=== PATIENT | female | born 2000 | race Caucasian/White ===

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

== ENCOUNTER 2019-12-30 02:33 | Observation (INO) | payer BC, OTHER ==
[~2019-12-30] VITALS: Ht 149.9 cm; Wt 113.2 kg
[2019-12-30] MEDS ORDERED: ESCI10 PO (02:58)
[2019-12-30] MEDS ORDERED: TRILEPTAL300 M1 PO (02:59)
[2019-12-30 03:33] LABS: BASOPHILS ABSOLUTE AUTO 0.05 K/mm3 (0.00-0.23); BASOPHILS PERCENT AUTO 0 % (0-2); EOSINOPHILS ABSOLUTE AUTO 0.06 K/mm3 (0.00-0.68); EOSINOPHILS PERCENT AUTO 0 % (0-6); Hematocrit 43.5 % (33.0-51.0); IMMATURE GRAN ABSOLUTE AUTO 0.06 K/mm3 (0.00-0.10); IMMATURE GRAN PERCENT AUTO 0 % (0-1); LYMPHOCYTES ABSOLUTE AUTO 2.02 K/mm3 (0.84-5.20); LYMPHOCYTES PERCENT AUTO 12 % (21-46); MONOCYTES ABSOLUTE AUTO 1.04 K/mm3 (0.16-1.47); MONOCYTES PERCENT AUTO 6 % (4-13); Mean Corpuscular HGB 30.2 pg (26.0-34.0); Mean Corpuscular HGB Conc 34.5 g/dL (31.5-36.5); Mean Corpuscular Volume 88 fL (80-100); Mean Platelet Volume 9.5 fL (9.1-12.4); NEUTROPHILS ABSOLUTE AUTO 13.53 K/mm3 (1.96-9.15); NEUTROPHILS PERCENT AUTO 81 % (41-73); Platelet Count 335 K/mm3 (150-400); RDW Coefficient Variation 12.8 % (11.7-14.2); RDW Standard Deviation 41.1 fL (35.1-46.3); Red Blood Cell Count 4.96 M/mm3 (3.80-5.20); White Blood Cell Count 16.76 K/mm3 (4.00-11.30)
[2019-12-30 03:35] LABS: Source, Urine Clean Catch
[2019-12-30 03:45] LABS: Appearance, Urine Clear (Clear); Bilirubin, Urine Neg (Neg); Blood, Urine 3+ (Neg); Color, Urine Yellow (P-Yellow); Glucose Qualitative, Urine Neg (Neg); Ketones, Urine Neg (Neg); Leukocyte Esterase, Urine 1+ (Neg); Nitrite, Urine Neg (Neg); Protein, Urine 1+ (Neg); Specific Gravity, Urine 1.025 (1.003-1.022); Urobilinogen, Urine NORM (Normal)
[2019-12-30 03:55] LABS: Bacteria Few /hpf; Squamous Epithelial Cells Few /hpf (Few); White Blood Cells, Urine 0-2 /hpf (0-5)
[2019-12-30 03:58] LABS: Anion Gap 11 mmol/L (6-16); Blood Urea Nitrogen 15 mg/dL (8-24); Bun/Creatinine Ratio 22.7 (12.0-20.0); CO2, Blood 21 mmol/L (21-32); Calcium, Blood 8.3 mg/dL (8.5-10.1); Chloride, Blood 108 mmol/L (98-108); Creatinine, Blood 0.66 mg/dL (0.40-1.00); Glomerular Filtration Rate >60 (60-); Glucose, Blood 114 mg/dL (70-99); Potassium, Blood 3.7 mmol/L (3.5-5.5); Sodium, Blood 140 mmol/L (136-145)
--- NOTE | 2019-12-30 06:30 | NUR ---
PT ARRIVED TO ROOM 210 AT 0600. A/O X4, IND IN ROOM WITH SBA FOR IV LINE. CALL LIGHT IN REACH, PT PROVIDED INSTRUCTIONS FOR USE. IV ABX INFUSING. FAMILY AT BEDSIDE.
--- NOTE | 2019-12-30 09:30 | NUR ---
PT TAKEN TO OR BY PRE-OP STAFF [facility]IA [employer]. PRIOR TO LEAVING PT WAS ABLE TO AMBULATE TO RESTROOM WITHOUT ASSIST. PAIN GREATLY IMPROVED. PT DID REPORT AFTER PRN PAIN MEDICATION ADMINISTERED THIS MORNING THAT SHE WAS HALLUCINATING AND BECAME VERY NAUSEATED. PRE-OP STAFF NOTIFIED OF PT'S REACTION TO PAIN MEDICATION.
--- NOTE | 2019-12-30 13:18 | NUR ---
1250 PT RETURNED FROM PACU S/P APPENDECTOMY. LAB SITES X3 W/ STERI STRIPS ALL ALL C/D/I EXCEPT SCANT BLOODY DRAINAGE FROM UMBILICAL INCISION. PT TOLERATING CLEARS AND REQUESTING A SANDWHICH. ENCOURAGED PT TO TAKE IT EASY AND TRY SOME CRACKERS FIRST. PT IS ALERT AND TALKING WITH FAMILY CURRENTLY. VITALS ARE STABLE, PT IS ON ROOM AIR.
[2019-12-30] MEDS ORDERED: Acetaminophen650 M1 PO (15:47)
[2019-12-30] MEDS ORDERED: OXAYDO5 MG PO (15:47)
--- NOTE | 2019-12-30 16:18 | NUR ---
PT MET POST OP DISCHARGE QUALIFIERS, DR PETERSON PLACED DISCHARGE ORDERS. DISCHAGE INSTRUCTIONS GONE OVER WITH PT AND FAMILY. INSTRUCTED PT ON PAIN CONTROL, MEDICATION AND HOW TO OBTAIN PAIN MEDICATION. INSTRUCTED PT ON POST OP INCISION AND DISCHARGE CARE. PT AND FAMILY STATED UNDERSTANDING. PT WAS ESCORTED OUT OF FACILITY BY RN VIA WHEELCHAIR AND WAS TAKEN HOME BY FAMILY. ALL BELONGINGS WERE GATHERED AND TAKEN WITH PT.
== END 2019-12-30 16:15 | disposition home or self-care (01) ==
LOC: ER 02:33 → SURS 02:34 → ER 05:43 → SURS 05:43
PROVIDERS: Student in an Organized Health Care Education/Training Program; ADMIT Surgery
PROC: 0DTJ4ZZ Resection of Appendix, Percutaneous Endoscopic Approach (ICD-10-PCS; principal; 2019-12-30 10:00)
DX: K35.80 Unspecified acute appendicitis (principal); Z20.828 Contact with and (suspected) exposure to other viral communicable diseases; Z88.2 Allergy status to sulfonamides; Z88.1 Allergy status to other antibiotic agents; F41.9 Anxiety disorder, unspecified; F32.9 Major depressive disorder, single episode, unspecified; Z79.899 Other long term (current) drug therapy
CPT/HCPCS: 36415; 74177; 80048; 81001; 81025; 85025; 87086; 96365-59; 96375; 99285-25; J0330; J0696; J0744; J1100; J1170; J1200; J1885; J2250; J2405; J2704; J3010; J7050; J7120; Q9967; U0002

== ENCOUNTER 2020-01-14 09:15 | Emergency (ER) | payer BC, OTHER ==
[~2020-01-14] VITALS: Ht 152.4 cm; Wt 112.5 kg
[~2020-01-14 09:15] MED LIST: Acetaminophen650 M1 PO; ESCI10 PO; OXAYDO5 MG PO; TRILEPTAL300 M1 PO
[2020-01-14 09:33] LABS: BASOPHILS ABSOLUTE AUTO 0.03 K/mm3 (0.00-0.23); BASOPHILS PERCENT AUTO 0 % (0-2); EOSINOPHILS ABSOLUTE AUTO 0.11 K/mm3 (0.00-0.68); EOSINOPHILS PERCENT AUTO 1 % (0-6); Hematocrit 43.2 % (33.0-51.0); Hemoglobin 15.1 g/dL (11.5-16.0); IMMATURE GRAN ABSOLUTE AUTO 0.01 K/mm3 (0.00-0.10); IMMATURE GRAN PERCENT AUTO 0 % (0-1); LYMPHOCYTES ABSOLUTE AUTO 2.36 K/mm3 (0.84-5.20); LYMPHOCYTES PERCENT AUTO 30 % (21-46); MONOCYTES ABSOLUTE AUTO 0.53 K/mm3 (0.16-1.47); MONOCYTES PERCENT AUTO 7 % (4-13); Mean Corpuscular HGB 30.7 pg (26.0-34.0); Mean Corpuscular Volume 88 fL (80-100); Mean Platelet Volume 9.2 fL (9.1-12.4); NEUTROPHILS ABSOLUTE AUTO 4.88 K/mm3 (1.96-9.15); NEUTROPHILS PERCENT AUTO 62 % (41-73); Platelet Count 332 K/mm3 (150-400); RDW Coefficient Variation 12.8 % (11.7-14.2); Red Blood Cell Count 4.92 M/mm3 (3.80-5.20); White Blood Cell Count 7.92 K/mm3 (4.00-11.30)
[2020-01-14 09:48] LABS: Alanine Aminotransfer (ALT/SGP 42 U/L (12-78); Albumin, Blood 3.6 g/dL (3.4-5.0); Alk Phos 101 U/L (50-136); Anion Gap 6 mmol/L (6-16); Aspartate Aminotrans (AST/SGOT 20 U/L (12-37); Bilirubin, Total 0.3 mg/dL (0.1-1.0); Blood Urea Nitrogen 10 mg/dL (8-24); Bun/Creatinine Ratio 20.4 (12.0-20.0); CO2, Blood 22 mmol/L (21-32); Calcium, Blood 8.7 mg/dL (8.5-10.1); Chloride, Blood 113 mmol/L (98-108); Creatinine, Blood 0.49 mg/dL (0.40-1.00); Globulin, Blood 3.5 g/dL (2.2-4.0); Glomerular Filtration Rate >60 (60-); Glucose, Blood 98 mg/dL (70-99); Sodium, Blood 141 mmol/L (136-145); Total Protein, Blood 7.1 g/dL (6.4-8.2)
[2020-01-14 10:07] LABS: Source, Urine Clean Catch
[2020-01-14 10:16] LABS: Appearance, Urine Clear (Clear); Bilirubin, Urine Neg (Neg); Blood, Urine Neg (Neg); Color, Urine Yellow (P-Yellow); Glucose Qualitative, Urine Neg (Neg); Ketones, Urine Neg (Neg); Leukocyte Esterase, Urine 1+ (Neg); Nitrite, Urine Neg (Neg); Protein, Urine Neg (Neg); Specific Gravity, Urine 1.025 (1.003-1.022); Urobilinogen, Urine NORM (Normal)
[2020-01-14 10:27] LABS: Bacteria Few /hpf; Red Blood Cells, Urine 0-2 /hpf (0-2); Squamous Epithelial Cells Mod /hpf (Few)
[2020-01-14] MEDS ORDERED: CEPH500 PO (10:57)
== END 2020-01-14 11:06 | disposition home or self-care (01) ==
LOC: ER 09:15
PROVIDERS: Emergency Medicine
DX: N39.0 Urinary tract infection, site not specified (principal); F41.9 Anxiety disorder, unspecified; F31.9 Bipolar disorder, unspecified; F90.9 Attention-deficit hyperactivity disorder, unspecified type; F17.200 Nicotine dependence, unspecified, uncomplicated; Z79.899 Other long term (current) drug therapy; Z90.49 Acquired absence of other specified parts of digestive tract; Z88.2 Allergy status to sulfonamides; Z88.1 Allergy status to other antibiotic agents
CPT/HCPCS: 36415; 76705; 80053; 81001; 83690; 85025; 87086; 96374; 99284-25; J1885

== ENCOUNTER 2020-03-12 10:02 | Emergency (ER) | payer BC, OTHER ==
[~2020-03-12] VITALS: Ht 152.4 cm; Wt 111.1 kg
[~2020-03-12 10:02] MED LIST changes: +CEPH500 PO
[2020-03-12 11:30] LABS: BASOPHILS ABSOLUTE AUTO 0.04 K/mm3 (0.00-0.23); BASOPHILS PERCENT AUTO 1 % (0-2); EOSINOPHILS ABSOLUTE AUTO 0.06 K/mm3 (0.00-0.68); EOSINOPHILS PERCENT AUTO 1 % (0-6); Hematocrit 44.5 % (33.0-51.0); Hemoglobin 14.8 g/dL (11.5-16.0); IMMATURE GRAN ABSOLUTE AUTO 0.02 K/mm3 (0.00-0.10); IMMATURE GRAN PERCENT AUTO 0 % (0-1); LYMPHOCYTES ABSOLUTE AUTO 2.08 K/mm3 (0.84-5.20); LYMPHOCYTES PERCENT AUTO 30 % (21-46); MONOCYTES ABSOLUTE AUTO 0.61 K/mm3 (0.16-1.47); MONOCYTES PERCENT AUTO 9 % (4-13); Mean Corpuscular HGB 29.1 pg (26.0-34.0); Mean Corpuscular HGB Conc 33.3 g/dL (31.5-36.5); Mean Corpuscular Volume 87 fL (80-100); Mean Platelet Volume 8.9 fL (9.1-12.4); NEUTROPHILS ABSOLUTE AUTO 4.08 K/mm3 (1.96-9.15); NEUTROPHILS PERCENT AUTO 59 % (41-73); Platelet Count 335 K/mm3 (150-400); RDW Coefficient Variation 12.9 % (11.7-14.2); RDW Standard Deviation 41.8 fL (35.1-46.3); Red Blood Cell Count 5.09 M/mm3 (3.80-5.20); White Blood Cell Count 6.89 K/mm3 (4.00-11.30)
[2020-03-12 11:53] LABS: Alanine Aminotransfer (ALT/SGP 33 U/L (12-78); Albumin, Blood 3.6 g/dL (3.4-5.0); Alk Phos 105 U/L (50-136); Anion Gap 4 mmol/L (6-16); Aspartate Aminotrans (AST/SGOT 19 U/L (12-37); Bilirubin, Total 0.3 mg/dL (0.1-1.0); Blood Urea Nitrogen 11 mg/dL (8-24); Bun/Creatinine Ratio 17.6 (12.0-20.0); CO2, Blood 26 mmol/L (21-32); Calcium, Blood 8.7 mg/dL (8.5-10.1); Chloride, Blood 110 mmol/L (98-108); Creatinine, Blood 0.62 mg/dL (0.40-1.00); Globulin, Blood 3.5 g/dL (2.2-4.0); Glomerular Filtration Rate >60 (60-); Glucose, Blood 94 mg/dL (70-99); Potassium, Blood 3.8 mmol/L (3.5-5.5); Sodium, Blood 140 mmol/L (136-145); Total Protein, Blood 7.1 g/dL (6.4-8.2)
[2020-03-12 12:02] LABS: Source, Urine Clean Catch
[2020-03-12 12:11] LABS: Appearance, Urine Clear (Clear); Bilirubin, Urine Neg (Neg); Blood, Urine 1+ (Neg); Color, Urine Yellow (P-Yellow); Glucose Qualitative, Urine Neg (Neg); Ketones, Urine 1+ (Neg); Leukocyte Esterase, Urine 1+ (Neg); Nitrite, Urine Neg (Neg); Protein, Urine 1+ (Neg); Urobilinogen, Urine NORM (Normal)
[2020-03-12 12:20] LABS: Bacteria Mod /hpf; Squamous Epithelial Cells Few /hpf (Few)
== END 2020-03-12 13:48 | disposition left against medical advice (07) ==
LOC: ER 10:02
PROVIDERS: Physician Assistant
DX: R10.84 Generalized abdominal pain (principal); J02.9 Acute pharyngitis, unspecified; Z53.21 Procedure and treatment not carried out due to patient leaving prior to being seen by health care provider; Z79.899 Other long term (current) drug therapy
CPT/HCPCS: 36415; 80053; 81001; 83690; 85025; 87086; 99284

== ENCOUNTER 2020-04-18 15:41 | Emergency (ER) | payer BC, OTHER ==
[~2020-04-18] VITALS: Ht 152.4 cm; Wt 111.1 kg
[~2020-04-18 15:41] MED LIST changes: +Atarax10 MG PO; +ESCI20 PO
== END 2020-04-18 17:04 | disposition home or self-care (01) ==
LOC: ER 15:41
DX: R05 Cough (principal); F17.200 Nicotine dependence, unspecified, uncomplicated; Z88.2 Allergy status to sulfonamides; Z88.1 Allergy status to other antibiotic agents; Z79.899 Other long term (current) drug therapy
CPT/HCPCS: 71046

== ENCOUNTER 2020-05-17 13:16 | Observation (INO) | payer BC, OTHER ==
[~2020-05-17] VITALS: Ht 152.4 cm; Wt 111.1 kg
[2020-05-17 15:17] LABS: BASOPHILS ABSOLUTE AUTO 0.04 K/mm3 (0.00-0.23); BASOPHILS PERCENT AUTO 0 % (0-2); EOSINOPHILS ABSOLUTE AUTO 0.08 K/mm3 (0.00-0.68); EOSINOPHILS PERCENT AUTO 1 % (0-6); Hematocrit 44.3 % (33.0-51.0); IMMATURE GRAN ABSOLUTE AUTO 0.01 K/mm3 (0.00-0.10); IMMATURE GRAN PERCENT AUTO 0 % (0-1); LYMPHOCYTES ABSOLUTE AUTO 2.56 K/mm3 (0.84-5.20); LYMPHOCYTES PERCENT AUTO 28 % (21-46); MONOCYTES ABSOLUTE AUTO 0.61 K/mm3 (0.16-1.47); MONOCYTES PERCENT AUTO 7 % (4-13); Mean Corpuscular HGB 29.4 pg (26.0-34.0); Mean Corpuscular HGB Conc 33.9 g/dL (31.5-36.5); Mean Corpuscular Volume 87 fL (80-100); Mean Platelet Volume 9.1 fL (9.1-12.4); NEUTROPHILS PERCENT AUTO 63 % (41-73); Platelet Count 347 K/mm3 (150-400); RDW Coefficient Variation 12.7 % (11.7-14.2); RDW Standard Deviation 40.4 fL (35.1-46.3); Red Blood Cell Count 5.11 M/mm3 (3.80-5.20)
[2020-05-17 15:51] LABS: Alanine Aminotransfer (ALT/SGP 34 U/L (12-78); Albumin, Blood 3.7 g/dL (3.4-5.0); Albumin/Globulin Ratio 1.1 (0.8-1.8); Alk Phos 120 U/L (50-136); Anion Gap 6 mmol/L (6-16); Aspartate Aminotrans (AST/SGOT 12 U/L (12-37); Bilirubin, Total 0.2 mg/dL (0.1-1.0); Blood Urea Nitrogen 8 mg/dL (8-24); Bun/Creatinine Ratio 13.9 (12.0-20.0); CO2, Blood 23 mmol/L (21-32); Calcium, Blood 8.3 mg/dL (8.5-10.1); Chloride, Blood 112 mmol/L (98-108); Creatinine, Blood 0.58 mg/dL (0.40-1.00); Ethanol (Alcohol), Blood, Med <3 mg/dL; Globulin, Blood 3.3 g/dL (2.2-4.0); Glomerular Filtration Rate >60 (60-); Glucose, Blood 105 mg/dL (70-99); Potassium, Blood 3.8 mmol/L (3.5-5.5); Salicylate <1.7 mg/dL (2.8-20.0); Sodium, Blood 141 mmol/L (136-145)
[2020-05-17 15:54] LABS: Acetaminophen, Random <2.0 ug/mL (10.0-30.0)
[2020-05-17 17:55] LABS: Source, Urine Clean Catch
[2020-05-17 17:59] LABS: Appearance, Urine Clear (Clear); Bilirubin, Urine Neg (Neg); Blood, Urine 1+ (Neg); Color, Urine Yellow (P-Yellow); Glucose Qualitative, Urine Neg (Neg); Ketones, Urine Neg (Neg); Leukocyte Esterase, Urine 2+ (Neg); Nitrite, Urine Neg (Neg); Protein, Urine 1+ (Neg); Urobilinogen, Urine NORM (Normal)
[2020-05-17] MEDS ORDERED: CLON.1 PO (18:11)
[2020-05-17] MEDS ORDERED: CLON.5 PO (18:11)
[2020-05-17] MEDS ORDERED: OMEP20ER PO (18:12)
[2020-05-17 18:13] LABS: U Amphetamine Screen Not Detected; U Barbituate Screen Not Detected; U Benzodiazapine Screen Not Detected; U Buprenorphine Screen Not Detected; U Cannabinoids Screen Not Detected; U Cocaine Screen Not Detected; U Methadone Screen Not Detected; U Methamphetamine Screen Not Detected; U Opiates Screen Not Detected; U Oxycodone Screen Not Detected; U Phencyclidine Screen Not Detected; U Propoxyphene Screen Not Detected
[2020-05-17 18:16] LABS: Bacteria Few /hpf; Red Blood Cells, Urine 0-2 /hpf (0-2); Squamous Epithelial Cells Mod /hpf (Few)
[2020-05-18 09:01] LABS: Influenza A, PCR Negative (NEGATIVE); Influenza B, PCR Negative (NEGATIVE); Resp Syncytial Virus, PCR Negative (NEGATIVE); SARS-Cov-2 (COVID-19) PCR, MMC Negative (NEGATIVE)
== END 2020-05-18 11:47 ==
LOC: ER 13:16 → EOR 13:17
PROVIDERS: Emergency Medicine; Physician Assistant; ADMIT Emergency Medicine
DX: F31.9 Bipolar disorder, unspecified (principal); R45.851 Suicidal ideations; F41.9 Anxiety disorder, unspecified; F90.9 Attention-deficit hyperactivity disorder, unspecified type; F17.200 Nicotine dependence, unspecified, uncomplicated; Z88.1 Allergy status to other antibiotic agents; Z88.2 Allergy status to sulfonamides; Z91.5 Personal history of self-harm; Z20.822 Contact with and (suspected) exposure to COVID-19
CPT/HCPCS: 0241U; 80053; 81001; 81025; 85025; 87086; 99285; A9270; G0378; G0480; Q3014

== ENCOUNTER 2020-08-11 09:39 | Emergency (ER) | payer BC, OTHER ==
[~2020-08-11] VITALS: Ht 152.4 cm; Wt 113.8 kg
[~2020-08-11 09:39] MED LIST changes: +CLON.1 PO; +CLON.5 PO; +OMEP20ER PO
[2020-08-11] MEDS ORDERED: Prinivil10 MG PO (10:10)
[2020-08-11] MEDS ORDERED: Seroquel Xr50 MG (10:10)
[2020-08-11] MEDS ORDERED: CYCL10 (10:10)
[2020-08-11] MEDS ORDERED: IBUP800 PO (11:20)
[2020-08-11] MEDS ORDERED: Norco 5-325 Ta1 EACH PO (11:20)
== END 2020-08-11 11:27 | disposition home or self-care (01) ==
LOC: ER 09:39
DX: M54.5 Low back pain (principal); F17.200 Nicotine dependence, unspecified, uncomplicated; Z79.899 Other long term (current) drug therapy; Z88.2 Allergy status to sulfonamides; Z88.1 Allergy status to other antibiotic agents
CPT/HCPCS: 96372; 99283; A9270-GY; J1885

== ENCOUNTER → 2020-10-13 | Outpatient (CLI) | payer BC, OTHER ==
[~2020-10-13] MED LIST changes: +CYCL10; +IBUP800 PO; +Norco 5-325 Ta1 EACH PO; +Prinivil10 MG PO; +Seroquel Xr50 MG
== END | disposition home or self-care (01) ==
LOC: LAB SHORT 10:00 → LAB 10:00
DX: J06.9 Acute upper respiratory infection, unspecified (principal); R09.82 Postnasal drip
CPT/HCPCS: 87081

== ENCOUNTER 2021-01-05 14:10 | Emergency (ER) | payer BC, OTHER ==
[~2021-01-05] VITALS: Ht 160 cm; Wt 113.8 kg
== END 2021-01-05 14:31 | disposition home or self-care (01) ==
LOC: ER 14:10
DX: T63.441A Toxic effect of venom of bees, accidental (unintentional), initial encounter (principal); F17.290 Nicotine dependence, other tobacco product, uncomplicated; Z88.2 Allergy status to sulfonamides; Z88.1 Allergy status to other antibiotic agents; Z79.899 Other long term (current) drug therapy
CPT/HCPCS: 99282; A9270

== ENCOUNTER 2021-03-12 14:48 | Emergency (ER) | payer BC, OTHER ==
[~2021-03-12] VITALS: Ht 157.5 cm; Wt 114.3 kg
[~2021-03-12 14:48] MED LIST changes: -Seroquel Xr50 MG; +Seroquel Xr50 MG PO
[2021-03-12 15:27] LABS: BASOPHILS ABSOLUTE AUTO 0.05 K/mm3 (0.00-0.23); BASOPHILS PERCENT AUTO 1 % (0-2); EOSINOPHILS ABSOLUTE AUTO 0.33 K/mm3 (0.00-0.68); EOSINOPHILS PERCENT AUTO 4 % (0-6); Hematocrit 42.3 % (33.0-51.0); IMMATURE GRAN ABSOLUTE AUTO 0.01 K/mm3 (0.00-0.10); IMMATURE GRAN PERCENT AUTO 0 % (0-1); LYMPHOCYTES PERCENT AUTO 22 % (21-46); MONOCYTES ABSOLUTE AUTO 1.04 K/mm3 (0.16-1.47); MONOCYTES PERCENT AUTO 11 % (4-13); Mean Corpuscular HGB Conc 35.5 g/dL (31.5-36.5); Mean Corpuscular Volume 87 fL (80-100); Mean Platelet Volume 9.4 fL (9.1-12.4); NEUTROPHILS PERCENT AUTO 63 % (41-73); Platelet Count 317 K/mm3 (150-400); RDW Coefficient Variation 12.9 % (11.7-14.2); RDW Standard Deviation 41.8 fL (35.1-46.3); Red Blood Cell Count 4.84 M/mm3 (3.80-5.20); White Blood Cell Count 9.43 K/mm3 (4.00-11.30)
[2021-03-12] MEDS ORDERED: POTCHL20ER PO (15:45)
[2021-03-12 15:46] LABS: Alanine Aminotransfer (ALT/SGP 46 U/L (12-78); Albumin, Blood 3.5 g/dL (3.4-5.0); Albumin/Globulin Ratio 0.9 (0.8-1.8); Alk Phos 97 U/L (50-136); Anion Gap 8 mmol/L (6-16); Aspartate Aminotrans (AST/SGOT 31 U/L (12-37); Bilirubin, Total 0.3 mg/dL (0.1-1.0); Blood Urea Nitrogen 13 mg/dL (8-24); Bun/Creatinine Ratio 19.4 (12.0-20.0); CO2, Blood 21 mmol/L (21-32); Calcium, Blood 8.6 mg/dL (8.5-10.1); Chloride, Blood 111 mmol/L (98-108); Creatinine, Blood 0.67 mg/dL (0.40-1.00); Globulin, Blood 3.7 g/dL (2.2-4.0); Glomerular Filtration Rate >60 (60-); Glucose, Blood 93 mg/dL (70-99); Potassium, Blood 4.1 mmol/L (3.5-5.5); Sodium, Blood 140 mmol/L (136-145); Total Protein, Blood 7.2 g/dL (6.4-8.2)
== END 2021-03-12 16:15 | disposition left against medical advice (07) ==
LOC: ER 14:48
PROVIDERS: Physician Assistant
DX: R11.2 Nausea with vomiting, unspecified (principal); R19.7 Diarrhea, unspecified; R10.9 Unspecified abdominal pain; R00.0 Tachycardia, unspecified; F41.9 Anxiety disorder, unspecified; F17.200 Nicotine dependence, unspecified, uncomplicated; Z88.2 Allergy status to sulfonamides; Z88.1 Allergy status to other antibiotic agents; Z79.899 Other long term (current) drug therapy
CPT/HCPCS: 36415; 80053; 83690; 85025; 99283

== ENCOUNTER → 2021-09-03 | Outpatient (CLI) | payer BC, OTHER ==
[~2021-09-03] MED LIST changes: +LOSARTAN POTASS25 M2 PO; +POTCHL20ER PO; +TRILEPTAL PO
== END | disposition home or self-care (01) ==
LOC: LAB 14:05 → LAB SHORT 14:05
DX: N39.0 Urinary tract infection, site not specified (principal)
CPT/HCPCS: 87086

== ENCOUNTER → 2021-09-04 | Outpatient (CLI) | payer BC, OTHER ==
[2021-09-06 12:10] LABS: CHLAMYDIA BY NAA Negative (Negative); GONOCOCCUS BY NAA Negative (Negative); TRICH VAG BY NAA Negative (Negative)
== END | disposition home or self-care (01) ==
LOC: LAB 17:18 → LAB SHORT 17:18
PROVIDERS: Chiropractor
DX: Z20.9 Contact with and (suspected) exposure to unspecified communicable disease (principal)
CPT/HCPCS: 87491; 87591; 87661

== ENCOUNTER → 2021-11-02 | Outpatient (CLI) | payer BC, OTHER ==
[2021-11-02 13:02] LABS: BASOPHILS ABSOLUTE AUTO 0.03 K/mm3 (0.00-0.23); BASOPHILS PERCENT AUTO 0 % (0-2); EOSINOPHILS ABSOLUTE AUTO 0.09 K/mm3 (0.00-0.68); EOSINOPHILS PERCENT AUTO 1 % (0-6); Hematocrit 40.1 % (33.0-51.0); Hemoglobin 14.1 g/dL (11.5-16.0); IMMATURE GRAN ABSOLUTE AUTO 0.02 K/mm3 (0.00-0.10); IMMATURE GRAN PERCENT AUTO 0 % (0-1); LYMPHOCYTES ABSOLUTE AUTO 2.11 K/mm3 (0.84-5.20); LYMPHOCYTES PERCENT AUTO 21 % (21-46); MONOCYTES ABSOLUTE AUTO 0.86 K/mm3 (0.16-1.47); MONOCYTES PERCENT AUTO 9 % (4-13); Mean Corpuscular HGB 30.8 pg (26.0-34.0); Mean Corpuscular HGB Conc 35.2 g/dL (31.5-36.5); Mean Corpuscular Volume 88 fL (80-100); NEUTROPHILS ABSOLUTE AUTO 6.98 K/mm3 (1.96-9.15); NEUTROPHILS PERCENT AUTO 69 % (41-73); Platelet Count 334 K/mm3 (150-400); RDW Standard Deviation 41.1 fL (35.1-46.3); Red Blood Cell Count 4.58 M/mm3 (3.80-5.20); White Blood Cell Count 10.09 K/mm3 (4.00-11.30)
[2021-11-02 13:09] LABS: Albumin, Blood 3.7 g/dL (3.4-5.0); Albumin/Globulin Ratio 1.1 (0.8-1.8); Bilirubin, Total 0.3 mg/dL (0.1-1.0); Bun/Creatinine Ratio 14.1 (12.0-20.0); Calcium, Blood 8.8 mg/dL (8.5-10.1); Creatinine, Blood 0.71 mg/dL (0.40-1.00); Globulin, Blood 3.3 g/dL (2.2-4.0)
== END ==
LOC: LAB 12:55 → LAB SHORT 12:55
PROVIDERS: Physician Assistant Medical
DX: R11.2 Nausea with vomiting, unspecified (principal)
CPT/HCPCS: 80053; 85025

== ENCOUNTER → 2022-04-16 | Outpatient (CLI) | payer BC, OTHER | END | disposition home or self-care (01) | LOC: LAB 13:56 → LAB SHORT 13:56 | DX: N30.01 Acute cystitis with hematuria (principal) | CPT/HCPCS: 87077; 87086; 87186 ==

== ENCOUNTER → 2022-05-29 | Outpatient (CLI) | payer BC, OTHER | END | disposition home or self-care (01) | LOC: LAB SHORT 14:18 | DX: N39.0 Urinary tract infection, site not specified (principal) | CPT/HCPCS: 87086 ==

== ENCOUNTER 2022-07-31 05:12 | Emergency (ER) | payer BC, OTHER ==
[~2022-07-31] VITALS: Ht 149.9 cm; Wt 104.3 kg
[~2022-07-31 05:12] MED LIST changes: +Zofran4 MG PO
[2022-07-31 06:43] LABS: BASOPHILS ABSOLUTE AUTO 0.04 K/mm3 (0.00-0.23); BASOPHILS PERCENT AUTO 1 % (0-2); EOSINOPHILS ABSOLUTE AUTO 0.09 K/mm3 (0.00-0.68); EOSINOPHILS PERCENT AUTO 1 % (0-6); Hemoglobin 13.8 g/dL (11.5-16.0); IMMATURE GRAN ABSOLUTE AUTO 0.03 K/mm3 (0.00-0.10); IMMATURE GRAN PERCENT AUTO 0 % (0-1); LYMPHOCYTES ABSOLUTE AUTO 1.98 K/mm3 (0.84-5.20); LYMPHOCYTES PERCENT AUTO 27 % (21-46); MONOCYTES PERCENT AUTO 8 % (4-13); Mean Corpuscular HGB 30.8 pg (26.0-34.0); Mean Corpuscular HGB Conc 35.4 g/dL (31.5-36.5); Mean Corpuscular Volume 87 fL (80-100); Mean Platelet Volume 8.6 fL (9.1-12.4); NEUTROPHILS ABSOLUTE AUTO 4.67 K/mm3 (1.96-9.15); NEUTROPHILS PERCENT AUTO 63 % (41-73); Platelet Count 316 K/mm3 (150-400); RDW Coefficient Variation 12.6 % (11.7-14.2); RDW Standard Deviation 40.2 fL (35.1-46.3); Red Blood Cell Count 4.48 M/mm3 (3.80-5.20); White Blood Cell Count 7.41 K/mm3 (4.00-11.30)
[2022-07-31 06:48] LABS: Source, Urine Clean Catch
[2022-07-31 06:59] LABS: Appearance, Urine Clear (Clear); Bilirubin, Urine Neg (Neg); Blood, Urine Neg (Neg); Color, Urine Yellow (P-Yellow); Glucose Qualitative, Urine Neg (Neg); Ketones, Urine Neg (Neg); Leukocyte Esterase, Urine Neg (Neg); Nitrite, Urine Neg (Neg); Protein, Urine Neg (Neg); Specific Gravity, Urine 1.015 (1.003-1.022); Urobilinogen, Urine NORM (Normal)
[2022-07-31 07:04] LABS: Albumin, Blood 3.6 g/dL (3.4-5.0); Albumin/Globulin Ratio 1.2 (0.8-1.8); Bilirubin, Total 0.2 mg/dL (0.1-1.0); Bun/Creatinine Ratio 21.6 (12.0-20.0); Creatinine, Blood 0.56 mg/dL (0.40-1.00); Globulin, Blood 3.1 g/dL (2.2-4.0); Potassium, Blood 3.8 mmol/L (3.5-5.5); Total Protein, Blood 6.7 g/dL (6.4-8.2)
[2022-07-31 07:26] VITALS: BP 129/72
[2022-07-31] MEDS ORDERED: ZOLOFT10013 PO (23:06)
== END 2022-07-31 07:26 | disposition home or self-care (01) ==
LOC: ER 05:12
PROVIDERS: Student in an Organized Health Care Education/Training Program
DX: R11.2 Nausea with vomiting, unspecified (principal); R10.9 Unspecified abdominal pain; F17.200 Nicotine dependence, unspecified, uncomplicated; Z88.2 Allergy status to sulfonamides; Z88.1 Allergy status to other antibiotic agents; Z79.899 Other long term (current) drug therapy
CPT/HCPCS: 36415; 80053; 81003; 81025; 83690; 85025; 93005; 93010; 96361; 96374; 99284-25; J1790; J7030

== ENCOUNTER 2022-07-31 21:54 | Emergency (ER) | payer BC, OTHER ==
[~2022-07-31] VITALS: Ht 149.9 cm; Wt 104.3 kg
[2022-07-31] MEDS ORDERED: ZOLOFT10013 PO (23:06)
[2022-08-01 02:34] VITALS: BP 155/105
== END 2022-08-01 03:23 | disposition home or self-care (01) ==
LOC: ER 21:54
DX: F41.9 Anxiety disorder, unspecified (principal); F17.210 Nicotine dependence, cigarettes, uncomplicated; Z88.2 Allergy status to sulfonamides; Z88.1 Allergy status to other antibiotic agents; Z79.899 Other long term (current) drug therapy
CPT/HCPCS: 96372; 99283; A9270; J1790

== ENCOUNTER 2022-08-26 12:08 | Emergency (ER) | payer BC, OTHER ==
[~2022-08-26] VITALS: Ht 149.9 cm; Wt 110.7 kg
[~2022-08-26 12:08] MED LIST changes: +ZOLOFT10013 PO
[2022-08-26 12:26] VITALS: BP 135/111
[2022-08-26] MEDS ORDERED: OLAN10 PO (15:47)
== END 2022-08-26 15:36 | disposition home or self-care (01) ==
LOC: ER 12:08
DX: F31.9 Bipolar disorder, unspecified (principal); Z88.1 Allergy status to other antibiotic agents; Z88.2 Allergy status to sulfonamides; Z79.899 Other long term (current) drug therapy; F17.210 Nicotine dependence, cigarettes, uncomplicated
CPT/HCPCS: 99283

== ENCOUNTER 2022-12-05 07:14 | Emergency (ER) | payer BC, OTHER ==
[~2022-12-05] VITALS: Ht 149.9 cm; Wt 117.9 kg
[~2022-12-05 07:14] MED LIST changes: +CLONAZEPAM1 MG PO; +OLAN10 PO
[2022-12-05 08:05] LABS: Source, Urine Clean Catch
[2022-12-05 08:09] LABS: Appearance, Urine Clear (Clear); Bilirubin, Urine Neg (Neg); Blood, Urine Neg (Neg); Color, Urine Yellow (P-Yellow); Glucose Qualitative, Urine Neg (Neg); Ketones, Urine Neg (Neg); Leukocyte Esterase, Urine Neg (Neg); Nitrite, Urine Neg (Neg); Protein, Urine Neg (Neg); Specific Gravity, Urine 1.015 (1.003-1.022); Urobilinogen, Urine NORM (Normal)
[2022-12-05 08:16] LABS: BASOPHILS ABSOLUTE AUTO 0.02 K/mm3 (0.00-0.23); BASOPHILS PERCENT AUTO 0 % (0-2); EOSINOPHILS ABSOLUTE AUTO 0.09 K/mm3 (0.00-0.68); EOSINOPHILS PERCENT AUTO 1 % (0-6); Hematocrit 40.1 % (33.0-51.0); Hemoglobin 14.3 g/dL (11.5-16.0); IMMATURE GRAN ABSOLUTE AUTO 0.01 K/mm3 (0.00-0.10); IMMATURE GRAN PERCENT AUTO 0 % (0-1); LYMPHOCYTES ABSOLUTE AUTO 1.74 K/mm3 (0.84-5.20); LYMPHOCYTES PERCENT AUTO 28 % (21-46); MONOCYTES ABSOLUTE AUTO 0.59 K/mm3 (0.16-1.47); MONOCYTES PERCENT AUTO 9 % (4-13); Mean Corpuscular HGB 30.6 pg (26.0-34.0); Mean Corpuscular HGB Conc 35.7 g/dL (31.5-36.5); Mean Corpuscular Volume 86 fL (80-100); NEUTROPHILS ABSOLUTE AUTO 3.88 K/mm3 (1.96-9.15); NEUTROPHILS PERCENT AUTO 61 % (41-73); Platelet Count 298 K/mm3 (150-400); RDW Coefficient Variation 12.3 % (11.7-14.2); RDW Standard Deviation 38.1 fL (35.1-46.3); Red Blood Cell Count 4.67 M/mm3 (3.80-5.20); White Blood Cell Count 6.33 K/mm3 (4.00-11.30)
[2022-12-05 08:32] LABS: Albumin, Blood 3.7 g/dL (3.4-5.0); Albumin/Globulin Ratio 1.1 (0.8-1.8); Bilirubin, Total 0.2 mg/dL (0.1-1.0); Bun/Creatinine Ratio 19.9 (12.0-20.0); Calcium, Blood 8.2 mg/dL (8.5-10.1); Creatinine, Blood 0.65 mg/dL (0.40-1.00); Globulin, Blood 3.4 g/dL (2.2-4.0); Potassium, Blood 4.3 mmol/L (3.5-5.5); Total Protein, Blood 7.1 g/dL (6.4-8.2)
[2022-12-05] MEDS ORDERED: ONDA4ODT MM (08:55)
[2022-12-05 09:23] VITALS: BP 139/89
== END 2022-12-05 09:20 | disposition home or self-care (01) ==
LOC: ER 07:14
PROVIDERS: Emergency Medicine
DX: M54.50 Low back pain, unspecified (principal); R11.2 Nausea with vomiting, unspecified; Z88.2 Allergy status to sulfonamides; Z88.1 Allergy status to other antibiotic agents; Z79.899 Other long term (current) drug therapy
CPT/HCPCS: 80053; 81003; 81025; 83690; 85025; 96374; 96375; 99284-25; J1885; J2405; J7030

== ENCOUNTER 2022-12-16 | Emergency (ER) | payer BC, OTHER ==
[~2022-12-16] VITALS: Ht 149.9 cm; Wt 117.9 kg
[~2022-12-16] MED LIST changes: +ONDA4ODT MM
[2022-12-16 00:30] LABS: BASOPHILS ABSOLUTE AUTO 0.04 K/mm3 (0.00-0.23); BASOPHILS PERCENT AUTO 1 % (0-2); EOSINOPHILS ABSOLUTE AUTO 0.09 K/mm3 (0.00-0.68); EOSINOPHILS PERCENT AUTO 1 % (0-6); Hematocrit 40.5 % (33.0-51.0); Hemoglobin 14.2 g/dL (11.5-16.0); IMMATURE GRAN ABSOLUTE AUTO 0.01 K/mm3 (0.00-0.10); IMMATURE GRAN PERCENT AUTO 0 % (0-1); LYMPHOCYTES ABSOLUTE AUTO 2.43 K/mm3 (0.84-5.20); LYMPHOCYTES PERCENT AUTO 29 % (21-46); MONOCYTES ABSOLUTE AUTO 0.62 K/mm3 (0.16-1.47); MONOCYTES PERCENT AUTO 8 % (4-13); Mean Corpuscular HGB 30.4 pg (26.0-34.0); Mean Corpuscular HGB Conc 35.1 g/dL (31.5-36.5); Mean Corpuscular Volume 87 fL (80-100); NEUTROPHILS ABSOLUTE AUTO 5.12 K/mm3 (1.96-9.15); NEUTROPHILS PERCENT AUTO 62 % (41-73); Platelet Count 319 K/mm3 (150-400); RDW Coefficient Variation 12.6 % (11.7-14.2); RDW Standard Deviation 39.5 fL (35.1-46.3); Red Blood Cell Count 4.67 M/mm3 (3.80-5.20); White Blood Cell Count 8.31 K/mm3 (4.00-11.30)
[2022-12-16 00:31] LABS: Source, Urine Clean Catch
[2022-12-16 00:54] LABS: Acetaminophen, Random <2.0 ug/mL (10.0-30.0); Alanine Aminotransfer (ALT/SGP 29 U/L (12-78); Albumin, Blood 3.9 g/dL (3.4-5.0); Albumin/Globulin Ratio 1.2 (0.8-1.8); Alk Phos 67 U/L (50-136); Anion Gap 6 mmol/L (6-16); Aspartate Aminotrans (AST/SGOT 16 U/L (12-37); Bilirubin, Total 0.1 mg/dL (0.1-1.0); Blood Urea Nitrogen 15 mg/dL (8-24); Bun/Creatinine Ratio 19.9 (12.0-20.0); CO2, Blood 23 mmol/L (21-32); Calcium, Blood 8.6 mg/dL (8.5-10.1); Chloride, Blood 112 mmol/L (98-108); Creatinine, Blood 0.75 mg/dL (0.40-1.00); Ethanol (Alcohol), Blood, Med <3 mg/dL; Globulin, Blood 3.2 g/dL (2.2-4.0); Glomerular Filtration Rate 115 (60-); Glucose, Blood 119 mg/dL (70-99); Potassium, Blood 3.8 mmol/L (3.5-5.5); Salicylate 2.9 mg/dL (2.8-20.0); Sodium, Blood 141 mmol/L (136-145); Thyroxine (T4) 4.7 ug/dL (4.8-13.9); Total Protein, Blood 7.1 g/dL (6.4-8.2)
[2022-12-16 00:54] LABS: Bilirubin, Urine Neg (Neg); Blood, Urine 1+ (Neg); Glucose Qualitative, Urine Neg (Neg); Ketones, Urine 1+ (Neg); Leukocyte Esterase, Urine Neg (Neg); Nitrite, Urine Neg (Neg); Protein, Urine 1+ (Neg); Specific Gravity, Urine 1.025 (1.003-1.022); Urobilinogen, Urine NORM (Normal)
[2022-12-16 01:14] LABS: Appearance, Urine Clear (Clear); Color, Urine Yellow (P-Yellow)
[2022-12-16 01:15] LABS: Bacteria Few /hpf; Red Blood Cells, Urine 0-2 /hpf (0-2); Squamous Epithelial Cells Mod /hpf (Few); White Blood Cells, Urine 0-2 /hpf (0-5)
[2022-12-16 01:17] LABS: U Amphetamine Screen Not Detected; U Barbituate Screen Not Detected; U Benzodiazapine Screen Not Detected; U Buprenorphine Screen Not Detected; U Cannabinoids Screen Not Detected; U Cocaine Screen Not Detected; U Methadone Screen Not Detected; U Methamphetamine Screen Not Detected; U Opiates Screen Not Detected; U Oxycodone Screen Not Detected; U Phencyclidine Screen Not Detected; U Propoxyphene Screen Not Detected
[2022-12-16] MEDS ORDERED: LEVSOD25 PO (01:26)
[2022-12-16 01:42] VITALS: BP 145/97
== END 2022-12-16 01:42 | disposition home or self-care (01) ==
LOC: ER
PROVIDERS: Emergency Medicine
DX: F32.A Depression, unspecified (principal); F41.9 Anxiety disorder, unspecified; E03.9 Hypothyroidism, unspecified; F17.210 Nicotine dependence, cigarettes, uncomplicated; Z88.1 Allergy status to other antibiotic agents; Z88.2 Allergy status to sulfonamides
CPT/HCPCS: 36415; 80053; 81001; 81025; 84436; 84443; 85025; 96372; 99285-25; A9270; G0480; J1885

== ENCOUNTER 2022-12-21 04:57 | Emergency (ER) | payer BC, OTHER ==
[~2022-12-21] VITALS: Ht 149.9 cm; Wt 117.9 kg
[~2022-12-21 04:57] MED LIST changes: +LEVSOD25 PO
[2022-12-21 06:00] LABS: Source, Urine Clean Catch
[2022-12-21 06:07] LABS: Bilirubin, Urine Neg (Neg); Blood, Urine 4+ (Neg); Glucose Qualitative, Urine Neg (Neg); Ketones, Urine Neg (Neg); Leukocyte Esterase, Urine Neg (Neg); Nitrite, Urine Neg (Neg); Protein, Urine Neg (Neg); Specific Gravity, Urine 1.015 (1.003-1.022); Urobilinogen, Urine NORM (Normal)
[2022-12-21 06:13] LABS: Appearance, Urine Clear (Clear); Color, Urine Pale Yellow (P-Yellow)
[2022-12-21 06:16] LABS: Amorphous Light (0-Heavy); Bacteria Rare /hpf; Squamous Epithelial Cells Few /hpf (Few)
[2022-12-21 06:32] LABS: BASOPHILS ABSOLUTE AUTO 0.03 K/mm3 (0.00-0.23); BASOPHILS PERCENT AUTO 0 % (0-2); EOSINOPHILS ABSOLUTE AUTO 0.06 K/mm3 (0.00-0.68); EOSINOPHILS PERCENT AUTO 1 % (0-6); Hematocrit 36.5 % (33.0-51.0); Hemoglobin 13.4 g/dL (11.5-16.0); IMMATURE GRAN ABSOLUTE AUTO 0.01 K/mm3 (0.00-0.10); IMMATURE GRAN PERCENT AUTO 0 % (0-1); LYMPHOCYTES ABSOLUTE AUTO 2.13 K/mm3 (0.84-5.20); LYMPHOCYTES PERCENT AUTO 30 % (21-46); MONOCYTES ABSOLUTE AUTO 0.53 K/mm3 (0.16-1.47); MONOCYTES PERCENT AUTO 7 % (4-13); Mean Corpuscular HGB 31.2 pg (26.0-34.0); Mean Corpuscular HGB Conc 36.7 g/dL (31.5-36.5); Mean Corpuscular Volume 85 fL (80-100); Mean Platelet Volume 8.9 fL (9.1-12.4); NEUTROPHILS ABSOLUTE AUTO 4.43 K/mm3 (1.96-9.15); NEUTROPHILS PERCENT AUTO 62 % (41-73); Platelet Count 316 K/mm3 (150-400); RDW Coefficient Variation 12.7 % (11.7-14.2); RDW Standard Deviation 38.8 fL (35.1-46.3); Red Blood Cell Count 4.29 M/mm3 (3.80-5.20); White Blood Cell Count 7.19 K/mm3 (4.00-11.30)
[2022-12-21 06:56] LABS: Alanine Aminotransfer (ALT/SGP 33 U/L (12-78); Albumin, Blood 3.5 g/dL (3.4-5.0); Albumin/Globulin Ratio 1.1 (0.8-1.8); Alk Phos 64 U/L (50-136); Anion Gap 6 mmol/L (6-16); Aspartate Aminotrans (AST/SGOT 17 U/L (12-37); Bilirubin, Total <0.1 mg/dL (0.1-1.0); Blood Urea Nitrogen 18 mg/dL (8-24); Bun/Creatinine Ratio 28.2 (12.0-20.0); CO2, Blood 24 mmol/L (21-32); Calcium, Blood 8.5 mg/dL (8.5-10.1); Chloride, Blood 113 mmol/L (98-108); Creatinine, Blood 0.64 mg/dL (0.40-1.00); Globulin, Blood 3.1 g/dL (2.2-4.0); Glomerular Filtration Rate 127 (60-); Glucose, Blood 115 mg/dL (70-99); Potassium, Blood 3.8 mmol/L (3.5-5.5); Sodium, Blood 143 mmol/L (136-145); Total Protein, Blood 6.6 g/dL (6.4-8.2)
[2022-12-21] MEDS ORDERED: OMEP20ER PO (07:23)
[2022-12-21 07:25] VITALS: BP 140/87
== END 2022-12-21 07:45 | disposition home or self-care (01) ==
LOC: ER 04:57
PROVIDERS: Student in an Organized Health Care Education/Training Program
DX: K21.9 Gastro-esophageal reflux disease without esophagitis (principal); E66.01 Morbid (severe) obesity due to excess calories; F17.210 Nicotine dependence, cigarettes, uncomplicated; Z68.43 Body mass index [BMI] 50.0-59.9, adult; Z88.2 Allergy status to sulfonamides; Z88.1 Allergy status to other antibiotic agents
CPT/HCPCS: 76705; 80053; 81001; 81025; 85025; 99284-25; A9270

== ENCOUNTER 2022-12-23 03:23 | Emergency (ER) | payer BC, OTHER ==
[~2022-12-23] VITALS: Ht 162.6 cm; Wt 90.7 kg
[2022-12-23 04:04] VITALS: BP 147/118
[2022-12-23] MEDS ORDERED: METO10 PO (06:23)
== END 2022-12-23 06:36 | disposition home or self-care (01) ==
LOC: ER 03:23
DX: R10.13 Epigastric pain (principal); R11.2 Nausea with vomiting, unspecified; Z88.2 Allergy status to sulfonamides; Z88.1 Allergy status to other antibiotic agents; Z79.899 Other long term (current) drug therapy; E03.9 Hypothyroidism, unspecified; F17.210 Nicotine dependence, cigarettes, uncomplicated
CPT/HCPCS: 99283; A9270

== ENCOUNTER 2023-01-09 03:11 | Emergency (ER) | payer BC, OTHER ==
[~2023-01-09] VITALS: Ht 149.9 cm; Wt 104.3 kg
[~2023-01-09 03:11] MED LIST changes: +METO10 PO
[2023-01-09] MEDS ORDERED: METO10 PO (04:48)
[2023-01-09 05:35] LABS: Calcium, Ionized (POC) 1.12 mmol/L (1.10-1.46); Chloride (POC) 107 mmol/L (98-108); Creatinine (POC) 0.5 mg/dL (0.6-1.0); Glucose (ISTAT POC) 99 mg/dL (70-99); Hemoglobin (POC) 13.3 g/dL (12.0-16.0); Sodium (POC) 139 mmol/L (135-148); Total CO2 (POC) 20 mmol/L (21-32)
[2023-01-09 05:38] VITALS: BP 121/74
== END 2023-01-09 05:52 | disposition home or self-care (01) ==
LOC: ER 03:11
PROVIDERS: Emergency Medicine
DX: G43.909 Migraine, unspecified, not intractable, without status migrainosus (principal); R11.2 Nausea with vomiting, unspecified; R19.7 Diarrhea, unspecified; E03.9 Hypothyroidism, unspecified; F17.210 Nicotine dependence, cigarettes, uncomplicated
CPT/HCPCS: 36415; 80047; 85014; 99284; A9270; J0780; J1200; Q0164

== ENCOUNTER 2023-02-02 21:58 | Emergency (ER) | payer BC, OTHER ==
[~2023-02-02] VITALS: Ht 149.9 cm; Wt 106.6 kg
[2023-02-02 22:01] VITALS: BP 148/102
[2023-02-02 22:29] LABS: BASOPHILS ABSOLUTE AUTO 0.04 K/mm3 (0.00-0.23); BASOPHILS PERCENT AUTO 0 % (0-2); EOSINOPHILS ABSOLUTE AUTO 0.07 K/mm3 (0.00-0.68); EOSINOPHILS PERCENT AUTO 1 % (0-6); Hematocrit 39.5 % (33.0-51.0); Hemoglobin 13.9 g/dL (11.5-16.0); IMMATURE GRAN ABSOLUTE AUTO 0.02 K/mm3 (0.00-0.10); IMMATURE GRAN PERCENT AUTO 0 % (0-1); LYMPHOCYTES ABSOLUTE AUTO 3.08 K/mm3 (0.84-5.20); LYMPHOCYTES PERCENT AUTO 28 % (21-46); MONOCYTES ABSOLUTE AUTO 0.78 K/mm3 (0.16-1.47); MONOCYTES PERCENT AUTO 7 % (4-13); Mean Corpuscular HGB 30.6 pg (26.0-34.0); Mean Corpuscular HGB Conc 35.2 g/dL (31.5-36.5); Mean Corpuscular Volume 87 fL (80-100); Mean Platelet Volume 8.9 fL (9.1-12.4); NEUTROPHILS ABSOLUTE AUTO 7.08 K/mm3 (1.96-9.15); NEUTROPHILS PERCENT AUTO 64 % (41-73); Platelet Count 382 K/mm3 (150-400); RDW Coefficient Variation 12.6 % (11.7-14.2); Red Blood Cell Count 4.54 M/mm3 (3.80-5.20); White Blood Cell Count 11.07 K/mm3 (4.00-11.30)
[2023-02-02 22:55] LABS: Alanine Aminotransfer (ALT/SGP 41 U/L (12-78); Albumin, Blood 3.9 g/dL (3.4-5.0); Albumin/Globulin Ratio 1.1 (0.8-1.8); Alk Phos 72 U/L (50-136); Anion Gap 4 mmol/L (6-16); Aspartate Aminotrans (AST/SGOT 20 U/L (12-37); Bilirubin, Total 0.1 mg/dL (0.1-1.0); Blood Urea Nitrogen 9 mg/dL (8-24); Bun/Creatinine Ratio 15.1 (12.0-20.0); CO2, Blood 24 mmol/L (21-32); Calcium, Blood 8.3 mg/dL (8.5-10.1); Chloride, Blood 111 mmol/L (98-108); Ethanol (Alcohol), Blood, Med <3 mg/dL; Globulin, Blood 3.5 g/dL (2.2-4.0); Glomerular Filtration Rate 129 (60-); Glucose, Blood 132 mg/dL (70-99); Potassium, Blood 4.1 mmol/L (3.5-5.5); Sodium, Blood 139 mmol/L (136-145); Total Protein, Blood 7.4 g/dL (6.4-8.2)
== END 2023-02-02 23:27 | disposition home or self-care (01) ==
LOC: ER 21:58
PROVIDERS: Student in an Organized Health Care Education/Training Program
DX: R10.9 Unspecified abdominal pain (principal); R11.10 Vomiting, unspecified; H53.8 Other visual disturbances; Z53.29 Procedure and treatment not carried out because of patient's decision for other reasons
CPT/HCPCS: 80053; 85025; 96360; 99285-25; J7030

== ENCOUNTER 2023-04-05 19:28 | Emergency (ER) | payer BC, OTHER ==
[~2023-04-05] VITALS: Ht 149.9 cm; Wt 106.6 kg
[2023-04-05 19:37] VITALS: BP 140/63
== END 2023-04-05 21:24 | disposition home or self-care (01) ==
LOC: ER 19:28
DX: S01.511A Laceration without foreign body of lip, initial encounter (principal); F17.210 Nicotine dependence, cigarettes, uncomplicated; Y04.0XXA Assault by unarmed brawl or fight, initial encounter; Z88.2 Allergy status to sulfonamides; Z88.1 Allergy status to other antibiotic agents; Z79.890 Hormone replacement therapy; Z79.899 Other long term (current) drug therapy; E03.9 Hypothyroidism, unspecified
CPT/HCPCS: 12011; 96372-59; 99282; J1885

== ENCOUNTER 2023-10-22 06:58 | Emergency (ER) | payer BC, OTHER ==
[~2023-10-22] VITALS: Ht 154.9 cm; Wt 81.7 kg
[~2023-10-22 06:58] MED LIST changes: +DICY20 PO
[2023-10-22] MEDS ORDERED: [UNRECOGNIZED DRUG - OTHER] (07:20)
[2023-10-22] MEDS ORDERED: ALPRAZolam 1 MG Tab PO ONE (07:25)
[2023-10-22 07:39] LABS: Source, Urine Clean Catch
[2023-10-22 07:48] LABS: Appearance, Urine Clear (Clear); Bilirubin, Urine Neg (Neg); Blood, Urine Neg (Neg); Color, Urine Yellow (P-Yellow); Glucose Qualitative, Urine Neg (Neg); Ketones, Urine Neg (Neg); Leukocyte Esterase, Urine 1+ (Neg); Nitrite, Urine Neg (Neg); Protein, Urine Neg (Neg); Urobilinogen, Urine NORM (Normal); pH, Urine 6.5 (5.0-8.0)
[2023-10-22 07:58] LABS: Bacteria Many /hpf; Mucus Light (0-Heavy); Red Blood Cells, Urine 0-2 /hpf (0-2); Squamous Epithelial Cells Many /hpf (Few); White Blood Cells, Urine 0-2 /hpf (0-5)
[2023-10-22] MEDS ORDERED: CEPH500 PO (08:54)
[2023-10-22 09:00] VITALS: BP 152/89
[2023-10-24 09:01] LABS: HIV 1,2 COMBO ANTIGEN/ANTIBODY Negative (Negative)
[2023-10-25 06:00] LABS: APTIMA MEDIA TYPE Urine; C. TRACHOMATIS BY TMA Negative (Negative); N. GONORRHOEAE BY TMA Negative (Negative); SPECIMEN SOURCE Urine
== END 2023-10-22 09:04 | disposition home or self-care (01) ==
LOC: ER 06:58
PROVIDERS: Emergency Medicine
DX: O23.41 Unspecified infection of urinary tract in pregnancy, first trimester (principal); O99.341 Other mental disorders complicating pregnancy, first trimester; O99.331 Smoking (tobacco) complicating pregnancy, first trimester; F41.9 Anxiety disorder, unspecified; E03.9 Hypothyroidism, unspecified; Z3A.01 Less than 8 weeks gestation of pregnancy; Z79.899 Other long term (current) drug therapy; Z88.2 Allergy status to sulfonamides; Z88.1 Allergy status to other antibiotic agents
CPT/HCPCS: 76801; 81001; 86592; 87086; 87389; 87491; 87591; 99284-25; A9270

== ENCOUNTER → 2023-11-02 | Outpatient (CLI) | payer BC, OTHER ==
[~2023-11-02] MED LIST changes: +[UNRECOGNIZED DRUG - OTHER]
[2023-11-02 14:07] LABS: Candida Group, PCR NOT DETECTED (NOT DETECT); Candida glabrata-krusei, PCR NOT DETECTED (NOT DETECT)
[2023-11-02 14:20] LABS: Bacterial Vaginosis PCR Positive (NEGATIVE)
== END ==
LOC: LAB SHORT 10:16 → LAB 10:16
PROVIDERS: Obstetrics & Gynecology
DX: N76.0 Acute vaginitis (principal)
CPT/HCPCS: 87481; 87661; 87801

== ENCOUNTER 2023-11-19 18:03 | Emergency (ER) | payer BC, OTHER, MEDICARE ==
[~2023-11-19] VITALS: Ht 149.9 cm; Wt 108.4 kg
[2023-11-19 18:07] VITALS: BP 144/91
[2023-11-19 18:52] LABS: BASOPHILS ABSOLUTE AUTO 0.02 K/mm3 (0.00-0.23); BASOPHILS PERCENT AUTO 0 % (0-2); EOSINOPHILS ABSOLUTE AUTO 0.06 K/mm3 (0.00-0.68); EOSINOPHILS PERCENT AUTO 1 % (0-6); Hematocrit 36.6 % (33.0-51.0); Hemoglobin 13.1 g/dL (11.5-16.0); IMMATURE GRAN ABSOLUTE AUTO 0.02 K/mm3 (0.00-0.10); IMMATURE GRAN PERCENT AUTO 0 % (0-1); LYMPHOCYTES ABSOLUTE AUTO 1.71 K/mm3 (0.84-5.20); LYMPHOCYTES PERCENT AUTO 23 % (21-46); MONOCYTES PERCENT AUTO 8 % (4-13); Mean Corpuscular HGB 32.3 pg (26.0-34.0); Mean Corpuscular HGB Conc 35.8 g/dL (31.5-36.5); Mean Corpuscular Volume 90 fL (80-100); Mean Platelet Volume 9.1 fL (9.1-12.4); NEUTROPHILS ABSOLUTE AUTO 5.09 K/mm3 (1.96-9.15); NEUTROPHILS PERCENT AUTO 68 % (41-73); Platelet Count 275 K/mm3 (150-400); RDW Coefficient Variation 12.3 % (11.7-14.2); RDW Standard Deviation 40.4 fL (35.1-46.3); Red Blood Cell Count 4.06 M/mm3 (3.80-5.20)
[2023-11-19 19:17] LABS: Albumin, Blood 3.3 g/dL (3.4-5.0); Bilirubin, Total 0.2 mg/dL (0.1-1.0); Bun/Creatinine Ratio 16.8 (12.0-20.0); Calcium, Blood 8.1 mg/dL (8.5-10.1); Creatinine, Blood 0.6 mg/dL (0.40-1.00); Globulin, Blood 3.2 g/dL (2.2-4.0); Total Protein, Blood 6.5 g/dL (6.4-8.2)
== END 2023-11-19 21:42 | disposition left against medical advice (07) ==
LOC: ER 18:03
PROVIDERS: Physician Assistant
DX: O20.9 Hemorrhage in early pregnancy, unspecified (principal); Z3A.12 12 weeks gestation of pregnancy
CPT/HCPCS: 80053; 85025; 99282

== ENCOUNTER 2023-12-09 18:42 | Emergency (ER) | payer BC, MEDICARE, OTHER ==
[~2023-12-09] VITALS: Ht 152.4 cm; Wt 110.2 kg
[2023-12-09 19:09] LABS: BASOPHILS ABSOLUTE AUTO 0.02 K/mm3 (0.00-0.23); BASOPHILS PERCENT AUTO 0 % (0-2); EOSINOPHILS ABSOLUTE AUTO 0.07 K/mm3 (0.00-0.68); EOSINOPHILS PERCENT AUTO 1 % (0-6); Hematocrit 37.4 % (33.0-51.0); Hemoglobin 13.1 g/dL (11.5-16.0); IMMATURE GRAN ABSOLUTE AUTO 0.03 K/mm3 (0.00-0.10); IMMATURE GRAN PERCENT AUTO 0 % (0-1); LYMPHOCYTES ABSOLUTE AUTO 2.04 K/mm3 (0.84-5.20); LYMPHOCYTES PERCENT AUTO 21 % (21-46); MONOCYTES ABSOLUTE AUTO 0.72 K/mm3 (0.16-1.47); MONOCYTES PERCENT AUTO 7 % (4-13); Mean Corpuscular HGB 31.9 pg (26.0-34.0); Mean Corpuscular Volume 91 fL (80-100); Mean Platelet Volume 9.1 fL (9.1-12.4); NEUTROPHILS ABSOLUTE AUTO 6.79 K/mm3 (1.96-9.15); NEUTROPHILS PERCENT AUTO 70 % (41-73); Platelet Count 239 K/mm3 (150-400); Red Blood Cell Count 4.11 M/mm3 (3.80-5.20); White Blood Cell Count 9.67 K/mm3 (4.00-11.30)
[2023-12-09 19:41] LABS: Albumin, Blood 3.1 g/dL (3.4-5.0); Albumin/Globulin Ratio 0.9 (0.8-1.8); Bilirubin, Total 0.2 mg/dL (0.1-1.0); Calcium, Blood 8.1 mg/dL (8.5-10.1); Creatinine, Blood 0.5 mg/dL (0.40-1.00); Globulin, Blood 3.6 g/dL (2.2-4.0); Potassium, Blood 3.7 mmol/L (3.5-5.5); Total Protein, Blood 6.7 g/dL (6.4-8.2)
[2023-12-09] MEDS ORDERED: CYCLOBENZAPRIN7.5 MG PO (21:53)
[2023-12-09] MEDS ORDERED: OXCA150 PO (21:54)
[2023-12-09] MEDS ORDERED: ASPI81CH PO (21:55)
[2023-12-09 22:04] VITALS: BP 144/99
[2023-12-09 22:10] LABS: Source, Urine Clean Catch
[2023-12-09 22:16] LABS: Appearance, Urine Clear (Clear); Bilirubin, Urine Neg (Neg); Blood, Urine 1+ (Neg); Color, Urine Yellow (P-Yellow); Glucose Qualitative, Urine Neg (Neg); Ketones, Urine 1+ (Neg); Leukocyte Esterase, Urine 1+ (Neg); Nitrite, Urine Neg (Neg); Protein, Urine 1+ (Neg); Specific Gravity, Urine 1.025 (1.003-1.022); Urobilinogen, Urine 1+ (Normal)
[2023-12-09 22:28] LABS: Bacteria Many /hpf; Squamous Epithelial Cells Mod /hpf (Few)
[2023-12-09] MEDS ORDERED: Cephalexin Monohydrate 500 MG Cap PO ONE (22:50)
[2023-12-09] MEDS ORDERED: DOCU100 PO (22:55)
[2023-12-09] MEDS ORDERED: CEPH500 PO (22:55)
== END 2023-12-09 23:04 | disposition home or self-care (01) ==
LOC: ER 18:42
PROVIDERS: Emergency Medicine
DX: O20.9 Hemorrhage in early pregnancy, unspecified (principal); O23.42 Unspecified infection of urinary tract in pregnancy, second trimester; K59.00 Constipation, unspecified; E86.0 Dehydration; Z3A.15 15 weeks gestation of pregnancy; Z68.42 Body mass index [BMI] 45.0-49.9, adult; F17.210 Nicotine dependence, cigarettes, uncomplicated; E03.9 Hypothyroidism, unspecified; Z79.82 Long term (current) use of aspirin; Z79.899 Other long term (current) drug therapy; Z88.2 Allergy status to sulfonamides; Z88.1 Allergy status to other antibiotic agents; Z91.040 Latex allergy status
CPT/HCPCS: 76815; 80053; 81001; 85025; 86900; 86901; 87086; 99284-25; A9270

== ENCOUNTER 2024-02-22 00:41 | Emergency (ER) | payer BC, MEDICARE, OTHER ==
[~2024-02-22] VITALS: Ht 149.9 cm; Wt 117.9 kg
[~2024-02-22 00:41] MED LIST changes: +ASPI81CH PO; +CYCLOBENZAPRIN7.5 MG PO; +DOCU100 PO; +OXCA150 PO
[2024-02-22] MEDS ORDERED: D5W-NS 1,000 ML IV SCH (00:55)
[2024-02-22] MEDS ORDERED: Metoclopramide HCl 5MG / ML 2ML Vial IV ONE (00:55)
[2024-02-22 01:14] LABS: Hematocrit 39.7 % (33.0-51.0); Mean Corpuscular HGB Conc 35.3 g/dL (31.5-36.5); Mean Corpuscular Volume 91 fL (80-100); RDW Standard Deviation 42.6 fL (35.1-46.3); Red Blood Cell Count 4.37 M/mm3 (3.80-5.20); White Blood Cell Count 8.76 K/mm3 (4.00-11.30)
[2024-02-22 01:20] LABS: Mean Platelet Volume 9.8 fL (9.1-12.4); Platelet Count 173 K/mm3 (150-400)
[2024-02-22 01:23] LABS: Albumin, Blood 2.7 g/dL (3.4-5.0); Albumin/Globulin Ratio 0.8 (0.8-1.8); Bilirubin, Total 0.4 mg/dL (0.1-1.0); Bun/Creatinine Ratio 23.2 (12.0-20.0); Calcium, Blood 7.7 mg/dL (8.5-10.1); Creatinine, Blood 0.48 mg/dL (0.40-1.00); Globulin, Blood 3.6 g/dL (2.2-4.0); Potassium, Blood 3.7 mmol/L (3.5-5.5); Total Protein, Blood 6.3 g/dL (6.4-8.2)
[2024-02-22 01:30] LABS: BAND PERCENT MAN 13 % (0-8); BASOPHILS PERCENT MAN 0 % (0-2); EOSINOPHILS ABSOLUTE MAN 0.08 K/mm3 (0.00-0.68); EOSINOPHILS PERCENT MAN 1 % (0-6); LYMPHOCYTES ABSOLUTE MAN 0.61 K/mm3 (0.84-5.20); LYMPHOCYTES PERCENT MAN 7 % (21-46); MONOCYTES ABSOLUTE MAN 0.35 K/mm3 (0.16-1.47); MONOCYTES PERCENT MAN 4 % (4-13); SEG NEUTROPHILS PERCENT MAN 75 % (41-73); TOTAL CELLS COUNTED 100
[2024-02-22] MEDS ORDERED: ClonazePAM 1 MG Tab PO ONE (01:40)
[2024-02-22 02:25] VITALS: BP 134/83
== END 2024-02-22 02:26 | disposition home or self-care (01) ==
LOC: ER 00:41
PROVIDERS: Emergency Medicine
DX: O21.9 Vomiting of pregnancy, unspecified (principal); O99.332 Smoking (tobacco) complicating pregnancy, second trimester; R10.84 Generalized abdominal pain; F41.9 Anxiety disorder, unspecified; E03.9 Hypothyroidism, unspecified; Z3A.25 25 weeks gestation of pregnancy; Z79.82 Long term (current) use of aspirin; Z79.899 Other long term (current) drug therapy; Z88.2 Allergy status to sulfonamides; Z88.1 Allergy status to other antibiotic agents; Z91.040 Latex allergy status
CPT/HCPCS: 80053; 83690; 85025; 96374; 99285-25; A9270; J2765; J7042

== ENCOUNTER → 2024-04-13 | Outpatient (CLI) | payer BC, MEDICARE, OTHER ==
[2024-04-13 15:10] LABS: Bacterial Vaginosis PCR Negative (NEGATIVE); Candida Group, PCR NOT DETECTED (NOT DETECT); Candida glabrata-krusei, PCR NOT DETECTED (NOT DETECT)
== END ==
LOC: LAB 11:48 → LAB SHORT 11:48
PROVIDERS: Obstetrics & Gynecology
DX: N94.9 Unspecified condition associated with female genital organs and menstrual cycle (principal)
CPT/HCPCS: 87481; 87661; 87801

== ENCOUNTER → 2024-04-27 | Outpatient (CLI) | payer MEDICARE, OTHER | END | disposition home or self-care (01) | LOC: LAB 16:10 → LAB SHORT 16:10 | DX: O09.91 Supervision of high risk pregnancy, unspecified, first trimester (principal); F31.9 Bipolar disorder, unspecified | CPT/HCPCS: 87081; 87150 ==

== ENCOUNTER 2024-05-14 18:53 | Inpatient (IN) | payer MEDICARE, OTHER ==
[~2024-05-14] VITALS: Ht 149.9 cm; Wt 125.4 kg
[2024-05-14] MEDS ORDERED: FentaNYL Citrate 50 MCG/ML 2 ML Injection IV PRN (19:45)
[2024-05-14] MEDS ORDERED: Lactated Ringer's 1,000 ML IV PRN ×2 (20:55→21:00)
[2024-05-14] MEDS ORDERED: OXYTOCIN/RINGER'S LACTATE 500 ML IV SCH (20:55)
[2024-05-14] MEDS ORDERED: Tranexamic Acid 100 ML IV SCH (21:00)
[2024-05-14] MEDS ORDERED: Misoprostol 25 MCG Tab VAG PRN (21:00)
[2024-05-14] MEDS ORDERED: OXYTOCIN/RINGER'S LACTATE 500 ML IV PRN (21:00)
[2024-05-14] MEDS ORDERED: Methylergonovine Maleate 0.2MG / ML 1ML Amp IM PRN (21:00)
[2024-05-14] MEDS ORDERED: Misoprostol 200 MCG Tab PR PRN (21:00)
[2024-05-14] MEDS ORDERED: Misoprostol 200 MCG Tab BC PRN (21:00)
[2024-05-14] MEDS ORDERED: Oxytocin 10 Unit / ML Vial IM PRN (21:00)
[2024-05-14] MEDS ORDERED: Carboprost Tromethamine 250 MCG/ML 1ML Amp IM PRN (21:00)
[2024-05-14] MEDS ORDERED: Ondansetron HCl 2 MG / ML 2ML Vial IV PRN (21:05)
[2024-05-14] MEDS ORDERED: Calcium Carbonate 500 MG Tab Chew PO PRN (21:05)
[2024-05-14] MEDS ORDERED: Acetaminophen 500 MG Tab PO PRN (21:10)
[2024-05-14] MEDS ORDERED: DiphenhydrAMINE HCL 25 MG Cap PO PRN (21:30)
[2024-05-14] MEDS ORDERED: Insulin Human Lispro 100 Units/ML 3ML Syringe SC SCH (21:35)
[2024-05-14] MEDS ORDERED: Zolpidem Tartrate 10 MG Tab PO PRN (22:50)
[2024-05-14] MEDS ORDERED: LABE200 (23:22)
[2024-05-14] MEDS ORDERED: Lactated Ringer's 1,000 ML IV SCH ×2 (23:30)
[2024-05-14] MEDS ORDERED: ePHEDrine Sulfate 50 MG/ML 1ML Injection XX PRN (23:30)
[2024-05-14] MEDS ORDERED: OXcarbazepine 300 MG Tab PO ONE (23:30)
[2024-05-14] MEDS ORDERED: FentaNYL 2mcg/ml-Bup 0.1% Epd 250 ML EPI PRN (23:30)
[2024-05-14 23:34] LABS: BASOPHILS ABSOLUTE AUTO 0.03 K/mm3 (0.00-0.23); BASOPHILS PERCENT AUTO 0 % (0-2); EOSINOPHILS ABSOLUTE AUTO 0.08 K/mm3 (0.00-0.68); EOSINOPHILS PERCENT AUTO 1 % (0-6); Hematocrit 37.7 % (33.0-51.0); Hemoglobin 13.3 g/dL (11.5-16.0); IMMATURE GRAN ABSOLUTE AUTO 0.07 K/mm3 (0.00-0.10); IMMATURE GRAN PERCENT AUTO 1 % (0-1); LYMPHOCYTES ABSOLUTE AUTO 2.39 K/mm3 (0.84-5.20); LYMPHOCYTES PERCENT AUTO 19 % (21-46); MONOCYTES ABSOLUTE AUTO 1.01 K/mm3 (0.16-1.47); MONOCYTES PERCENT AUTO 8 % (4-13); Mean Corpuscular HGB 31.4 pg (26.0-34.0); Mean Corpuscular HGB Conc 35.3 g/dL (31.5-36.5); Mean Corpuscular Volume 89 fL (80-100); Mean Platelet Volume 10.6 fL (9.1-12.4); NEUTROPHILS ABSOLUTE AUTO 9.21 K/mm3 (1.96-9.15); NEUTROPHILS PERCENT AUTO 72 % (41-73); Platelet Count 228 K/mm3 (150-400); RDW Coefficient Variation 12.7 % (11.7-14.2); RDW Standard Deviation 40.9 fL (35.1-46.3); Red Blood Cell Count 4.23 M/mm3 (3.80-5.20); White Blood Cell Count 12.79 K/mm3 (4.00-11.30)
[2024-05-14 23:54] VITALS: BP 138/83
[2024-05-14] MEDS ORDERED: Insulin NPH 100 Unit / ML 10ML Vial SC ONE (23:55)
[2024-05-15] VITALS (43 sets, daily range): BP systolic 102–180; BP diastolic 52–105
[2024-05-15] MEDS ORDERED: Labetalol HCL 100 MG TAB PO SCH
[2024-05-15 01:54] LABS: Albumin, Blood 2.3 g/dL (3.4-5.0); Albumin/Globulin Ratio 0.6 (0.8-1.8); Bilirubin, Total 0.1 mg/dL (0.1-1.0); Bun/Creatinine Ratio 31.4 (12.0-20.0); Calcium, Blood 8.4 mg/dL (8.5-10.1); Creatinine, Blood 0.51 mg/dL (0.40-1.00); Potassium, Blood 4.1 mmol/L (3.5-5.5); Total Protein, Blood 6.3 g/dL (6.4-8.2)
[2024-05-15] MEDS ORDERED: Omeprazole 20 MG CapCR PO SCH (06:00)
--- NOTE | 2024-05-15 06:10 | NUR ---
WHEN TALKING TO PATIENTS MOM VIV IN THE DAWN I ASKED IF SHE(VIV) WAS SAFE. VIV STATED "SHE THREATENS BUT NEVER FOLLOWS THROUGH." "SHE TALKS A BIG GAME." "She makes thing bigger than they are" and "she is prepaired to step in if we have to."
[2024-05-15] MEDS ORDERED: Insulin NPH 10 Unit/0.1ML (Single Dose) SC SCH (09:00)
[2024-05-15] MEDS ORDERED: OXcarbazepine 300 MG Tab PO SCH (09:00)
[2024-05-16] VITALS (29 sets, daily range): BP systolic 122–172; BP diastolic 58–104
--- NOTE | 2024-05-16 06:28 | NUR ---
while bedside to adjust US and TOCO. pt making comments about how badly she wants the baby to come out. Pt states to belly (as if talking to her baby) " if you dont come down and out im going to try and stand up with this epidural. Then, I will fall had have to have a and we can be done with this!" This RN reminded pt of safe activity while having an epidural.
[2024-05-16] MEDS ORDERED: CeFAZolin Sodium 3,000 MG in NS 100 ML IV SCH (17:10)
[2024-05-16] MEDS ORDERED: Azithromycin 500 MG in NS 250 ML IV SCH (17:10)
[2024-05-16] MEDS ORDERED: Lactated Ringer's 1,000 ML IV SCH ×4 (17:10→22:50)
[2024-05-16] MEDS ORDERED: Citric Acid/Sodium Citrate 30 ML BTL PO ONE (17:15)
[2024-05-16] MEDS ORDERED: Tranexamic Acid 100 ML IV ONE (17:59)
[2024-05-16] MEDS ORDERED: Phenylephrine HCl 100 MCG/ML-NS 10MLSYR (1MG/10ML) ONE ×2 (18:12→18:59)
[2024-05-16] MEDS ORDERED: Ondansetron HCl 2 MG / ML 2ML Vial ONE (18:12)
[2024-05-16] MEDS ORDERED: Lidocaine HCl 2% 10 ML SDA ONE (18:19)
[2024-05-16] MEDS ORDERED: Oxytocin 10 Unit / ML Vial ONE ×4 (18:29→19:40)
[2024-05-16] MEDS ORDERED: HYDROmorphone HCl/Pf 1MG SYR IV PRN ×2 (18:40→20:20)
[2024-05-16] MEDS ORDERED: ePHEDrine Sulfate 50 MG/ML 1ML Injection IV PRN (18:40)
[2024-05-16] MEDS ORDERED: FentaNYL Citrate 50 MCG/ML 2 ML Injection IV PRN ×2 (18:40)
[2024-05-16] MEDS ORDERED: Labetalol HCL 5 MG/ML 4ML Injection (Single Dose) IV PRN ×4 (18:40→22:45)
[2024-05-16] MEDS ORDERED: FentaNYL Citrate 50 MCG/ML 2 ML Injection ONE ×3 (18:42→19:15)
[2024-05-16] MEDS ORDERED: Midazolam HCl 1MG / ML 2ML Vial ONE ×2 (18:43→19:01)
[2024-05-16] MEDS ORDERED: Atropine Sulfate 0.1 MG/ML 10ML SYR IV PRN (18:45)
[2024-05-16] MEDS ORDERED: Ondansetron HCl 2 MG / ML 2ML Vial IV PRN ×2 (18:45→20:25)
[2024-05-16] MEDS ORDERED: Albuterol 2.5 MG/3 ML VIAL INH PRN (18:45)
--- NOTE | 2024-05-16 18:59 | NUR ---
05/16/24 185 [facility] Painter VIABLE FEMALE DELIVERED 1835; APGARS 9/9; WT 3020 6LB 11 OZ; HEAD 13; CHEST 13.5; CORD BLOOD COLLECTED GIVEN TO Inocencia HASSAN RN.
[2024-05-16] MEDS ORDERED: OXYTOCIN/RINGER'S LACTATE 500 ML IV SCH (20:20)
[2024-05-16] MEDS ORDERED: OxyCODONE HCL 5 MG TAB PO PRN ×2 (20:20→20:30)
[2024-05-16] MEDS ORDERED: Misoprostol 200 MCG Tab PR PRN (20:20)
[2024-05-16] MEDS ORDERED: DiphenhydrAMINE HCL 25 MG Cap PO PRN (20:25)
[2024-05-16] MEDS ORDERED: Rho(D) Immune Globulin 300 MCG / SYR IM ONE (20:25)
[2024-05-16] MEDS ORDERED: Magnesium Hydroxide Conc 10 ML UDC PO PRN (20:25)
[2024-05-16] MEDS ORDERED: Carboprost Tromethamine 250 MCG/ML 1ML Amp IM PRN (20:25)
[2024-05-16] MEDS ORDERED: Metoclopramide HCl 10 MG Tab PO PRN (20:25)
[2024-05-16] MEDS ORDERED: Simethicone 80 MG Chew PO PRN (20:25)
[2024-05-16] MEDS ORDERED: Lanolin Cream TOP PRN (20:30)
[2024-05-16] MEDS ORDERED: ClonazePAM 1 MG Tab PO PRN (20:30)
[2024-05-16] MEDS ORDERED: Tranexamic Acid 100 ML IV PRN (20:50)
[2024-05-16] MEDS ORDERED: Ketorolac Tromethamine 30mg Vial IV SCH (21:00)
[2024-05-16] MEDS ORDERED: Diazepam 5 MG / ML 2ML SYR IV PRN (22:45)
[2024-05-16] MEDS ORDERED: HydrALAZINE HCl 20 MG / ML 1ML Vial IV ONE (22:50)
[2024-05-16] MEDS ORDERED: HydrALAZINE HCl 20 MG / ML 1ML Vial IV PRN (22:50)
[2024-05-16] MEDS ORDERED: Calcium Gluconate 0.465 mEq/ml 10 ml Vial IV ONE (22:50)
[2024-05-16] MEDS ORDERED: Magnesium Sul 4 GM/Water100 ML 100 ML IV ONE ×2 (23:00→23:02)
[2024-05-16] MEDS ORDERED: Enoxaparin 40 MG/0.4 ML SYR SC SCH (23:00)
[2024-05-16] MEDS ORDERED: Magnesium Sulfate 500 ML IV SCH (23:00)
[2024-05-16] MEDS ORDERED: Magnesium Sulf 2 GM/Water 50ML 50 ML IV SCH (23:00)
[2024-05-16] MEDS ORDERED: Magnesium Sulf 2 GM/Water 50ML 50 ML IV ONE (23:02)
--- NOTE | 2024-05-16 23:49 | NUR ---
MAG NOTE Dr. Givens notified at 2134 of pt hacing 2 severe range bps. Pt also complained of severe pain and had been medicated with PO labetalol approx an hour prior, but was several hours past due because of c section. Dr. Givens instructed to give breakthrough diladid and hold off on starting HTN protocol atr this time. If pt has 2 more severe range bps after 10 minutes of administering diladid then notify Dr. Givens and plan to start protocol w/ hydralazine. Pts bp continued to bounce back and forth around sever range. At 2234 Dr. Givens called back w/ orders to start protocol due to pts labile bps hovering around severe range. Dr. Givens placed orders and bp began to lower so IV hydralazine held. Confirmed with Dr. Givens to continue to start mag sulfate, which was initiatedper emar.
[2024-05-17] VITALS (20 sets, daily range): BP systolic 116–165; BP diastolic 62–94
[2024-05-17] MEDS ORDERED: Ibuprofen 400 MG Tab PO SCH
[2024-05-17] MEDS ORDERED: Acetaminophen 500 MG Tab PO SCH
[2024-05-17 00:06] LABS: BASOPHILS ABSOLUTE AUTO 0.03 K/mm3 (0.00-0.23); BASOPHILS PERCENT AUTO 0 % (0-2); EOSINOPHILS ABSOLUTE AUTO 0.02 K/mm3 (0.00-0.68); EOSINOPHILS PERCENT AUTO 0 % (0-6); Hematocrit 33.7 % (33.0-51.0); IMMATURE GRAN ABSOLUTE AUTO 0.07 K/mm3 (0.00-0.10); IMMATURE GRAN PERCENT AUTO 1 % (0-1); LYMPHOCYTES ABSOLUTE AUTO 2.08 K/mm3 (0.84-5.20); LYMPHOCYTES PERCENT AUTO 15 % (21-46); MONOCYTES ABSOLUTE AUTO 0.77 K/mm3 (0.16-1.47); MONOCYTES PERCENT AUTO 6 % (4-13); Mean Corpuscular HGB 31.7 pg (26.0-34.0); Mean Corpuscular HGB Conc 35.6 g/dL (31.5-36.5); Mean Corpuscular Volume 89 fL (80-100); Mean Platelet Volume 9.8 fL (9.1-12.4); NEUTROPHILS ABSOLUTE AUTO 10.93 K/mm3 (1.96-9.15); NEUTROPHILS PERCENT AUTO 79 % (41-73); Platelet Count 202 K/mm3 (150-400); RDW Coefficient Variation 12.5 % (11.7-14.2); RDW Standard Deviation 40.6 fL (35.1-46.3); Red Blood Cell Count 3.79 M/mm3 (3.80-5.20)
[2024-05-17 00:29] LABS: Albumin, Blood 1.8 g/dL (3.4-5.0); Albumin/Globulin Ratio 0.6 (0.8-1.8); Bilirubin, Total 0.2 mg/dL (0.1-1.0); Bun/Creatinine Ratio 17.5 (12.0-20.0); Calcium, Blood 7.7 mg/dL (8.5-10.1); Creatinine, Blood 0.63 mg/dL (0.40-1.00); Globulin, Blood 3.1 g/dL (2.2-4.0); Potassium, Blood 3.7 mmol/L (3.5-5.5); Total Protein, Blood 4.9 g/dL (6.4-8.2)
[2024-05-17 06:35] LABS: BASOPHILS ABSOLUTE AUTO 0.04 K/mm3 (0.00-0.23); BASOPHILS PERCENT AUTO 0 % (0-2); EOSINOPHILS ABSOLUTE AUTO 0.08 K/mm3 (0.00-0.68); EOSINOPHILS PERCENT AUTO 1 % (0-6); Hematocrit 34.1 % (33.0-51.0); Hemoglobin 12.1 g/dL (11.5-16.0); IMMATURE GRAN ABSOLUTE AUTO 0.05 K/mm3 (0.00-0.10); IMMATURE GRAN PERCENT AUTO 0 % (0-1); LYMPHOCYTES ABSOLUTE AUTO 2.51 K/mm3 (0.84-5.20); LYMPHOCYTES PERCENT AUTO 22 % (21-46); MONOCYTES ABSOLUTE AUTO 0.87 K/mm3 (0.16-1.47); MONOCYTES PERCENT AUTO 8 % (4-13); Mean Corpuscular HGB 31.3 pg (26.0-34.0); Mean Corpuscular HGB Conc 35.5 g/dL (31.5-36.5); Mean Corpuscular Volume 88 fL (80-100); Mean Platelet Volume 10.2 fL (9.1-12.4); NEUTROPHILS ABSOLUTE AUTO 7.91 K/mm3 (1.96-9.15); NEUTROPHILS PERCENT AUTO 69 % (41-73); Platelet Count 218 K/mm3 (150-400); RDW Coefficient Variation 12.5 % (11.7-14.2); RDW Standard Deviation 39.9 fL (35.1-46.3); Red Blood Cell Count 3.87 M/mm3 (3.80-5.20); White Blood Cell Count 11.46 K/mm3 (4.00-11.30)
[2024-05-17] MEDS ORDERED: Polyethylene Glycol 3350 17 gm PO SCH (09:00)
[2024-05-17] MEDS ORDERED: Prenatal Vit/FE Fumarate/FA 1 Tab PO SCH ×2 (09:00)
--- NOTE | 2024-05-17 09:00 | NUR ---
PT REPORTED A DESIRE TO PUMP. RN SET UP BREAST PUMP FOR PT AND SHOWED PT HOW TO DO IT. PT PUMPED FOR ABOUT 2 MINUTES AND THEN DECIDED SHE DIDN'T LIKE IT AND ASKED TO STOP. PT STATED SHE DIDN'T LIKE THAT THE PUMPS WOULDN'T STAY ON HER BREAST WITHOUT HER HOLDING THEM AND IT CAUSED HER PAIN. RN INSTRUCTED THAT HER BREASTS DO NEED NIPPLE STIMULATION IN ORDER FOR HER MILK TO COME IN, BUT IF SHE WAS NOT INTERESTED IN OR PUMPING, IT'S OKAY TO FEED HER BABY FORMULA. WHEN THE PEDITRICIAN ROUNDS THIS MORNING WE WILL DISCUSS THE SAFETY OF WHILE THE PT IS ON HER CURRENT MEDICATIONS.
[2024-05-17 09:18] LABS: Creatinine, Urine Random 45.8 mg/dL (27.00-270.00); Protein, Urine Random 13.5 mg/dL (0.0-11.9); Protein/Creat Ratio, Ur Random 0.3
--- NOTE | 2024-05-17 10:09 | NUR ---
SAFE SLEEP EDUCATION DONE PATIENT PROPPING UP ON HER LEGS IN BED WITH THE BOPPY PILLOW AT A VERY ELEVATED POSITION. RN DISCUSSING CONCERNS FOR [employer]NS SAFETY IN THAT POSITION IT WOULD BE EASY FOR HER TO ROLL OUT OF THE BOPPY PILLOW AND POTENTIALLY FALL OUT OF BED ONTO THE FLOOR, RN ADJUSTED THE POSITION OF THE BOPPY PILLOW TO A MORE SECURE SPOT. PATIENT STATED "I WAS THINKING THAT WOULD BE A GOOD PLACE TO CO-SLEEP WITH HER AT" RN STATED THAT C0-SLEEPING IS DANGEROUS AND NOT RECOMMENDED AT ALL, SHOULD BE PLACED IN HER BASSINET, FLAT ON HER BACK, AND SWADDLED WITH NO LOOSE BLANKETS, PILLOWS, OR STUFFED ANIMALS IN BED. PATIENT SAID "OH WELL THEN" AND DID NOT RESPOND FURTHER THAN THAT. NURSING STAFF WILL CONTINUE TO EDUCATE PT ON SAFE SLEEP PRACTICES.
--- NOTE | 2024-05-17 10:50 | NUR ---
MAG SULFATE OFF AT 1015. BAG WAS COMPLETE AND ORDER FROM DR. MESA WAS TO ONLY RUN FOR 12 HOURS.
--- NOTE | 2024-05-17 22:55 | NUR ---
Patient is very anxious and escalates quickly. Patient called RN after being left alone for a few minutes. Her mom left to walk visitors out. Baby was crying and patient states she was overwhelmed and needed help. Timeframe that patient was left alone was less than 5 minutes.
--- NOTE | 2024-05-17 23:45 | NUR ---
Patient called out. VENITA Rodriguez to bedside. Patient hyperventiliating. Called for additional RN's. This RN and Cherise, Charge nurse, to bedside. Patient continuing to hyperventilate. Encouraged patient to slow her breathing. Patient states she feels like "the russo are closing in on her." Patient very upset and difficult to calm down. Patient reports trying to sleep but unable to. Patient requests that baby be taken out of the room so she doesn't see her like this. Patient states she wants to be able to care for her baby, but has difficulty meeting her basic needs such as diaper changes or feeding the baby, without getting overwhelmed, needing assistance, or having what appears to be a "panic attack." Patient states she is very anxious, and is demanding help from her mother frequently. Patient's mother is very helpful, but is also needing to attend to her own health needs. Patient escalates quickly and lashes out at mother and staff often. This RN offered to help care for the baby, so she could get some sleep. Patient very reluctant at first, but then agrees to let staff watch baby for a short time. Patient will try to sleep but will call RN with any needs/changes.
[2024-05-18 00:14] VITALS: BP 141/68
[2024-05-18 04:10] VITALS: BP 119/64
--- NOTE | 2024-05-18 07:00 | NUR ---
See nurses note about patient providing routine care for infant, in infant chart.
[2024-05-18 08:28] VITALS: BP 177/77
[2024-05-18 08:43] VITALS: BP 141/71
[2024-05-18 09:43] VITALS: BP 134/69
[2024-05-18 14:55] VITALS: BP 135/83
== END 2024-05-18 15:10 | disposition home or self-care (01) | DRG 788 ==
LOC: OBS 18:53 → BC 19:03
PROVIDERS: ADMIT Obstetrics & Gynecology
PROC: 3E0DXGC Introduction of Other Therapeutic Substance into Mouth and Pharynx, External Approach (ICD-10-PCS; 2024-05-16)
PROC: 10D00Z1 Extraction of Products of Conception, Low, Open Approach (ICD-10-PCS; principal; 2024-05-16 20:30)
DX: O16.4 Unspecified maternal hypertension, complicating childbirth (principal); Z37.0 Single live birth; O47.03 False labor before 37 completed weeks of gestation, third trimester; O24.424 Gestational diabetes mellitus in childbirth, insulin controlled; O99.344 Other mental disorders complicating childbirth; F31.9 Bipolar disorder, unspecified; F41.9 Anxiety disorder, unspecified; F43.10 Post-traumatic stress disorder, unspecified; O99.214 Obesity complicating childbirth; F42.9 Obsessive-compulsive disorder, unspecified; F91.3 Oppositional defiant disorder; G47.00 Insomnia, unspecified; Z87.891 Personal history of nicotine dependence; Z88.2 Allergy status to sulfonamides; Z3A.37 37 weeks gestation of pregnancy; Z91.040 Latex allergy status; Z88.1 Allergy status to other antibiotic agents; Z79.82 Long term (current) use of aspirin; Z79.899 Other long term (current) drug therapy; Z79.4 Long term (current) use of insulin
CPT/HCPCS: 36415; 36416; 51702; 59025; 59200; 80053; 81003; 82570; 82947; 84156; 85025; 86850; 86900; 86901; 86923; 87210; 99214; A9270; J0456; J0690; J1171; J1650; J1815; J1885; J2003; J2250; J2371; J2405; J2590; J3010; J3475; J7050; J7120

== ENCOUNTER 2024-06-28 03:04 | Emergency (ER) | payer BC, MEDICARE, OTHER ==
[~2024-06-28] VITALS: Ht 149.9 cm; Wt 113.4 kg
[~2024-06-28 03:04] MED LIST changes: +LABE200
[2024-06-28 03:52] LABS: Source, Urine Clean Catch
[2024-06-28 03:54] LABS: Bilirubin, Urine Neg (Neg); Blood, Urine Neg (Neg); Glucose Qualitative, Urine Neg (Neg); Ketones, Urine Neg (Neg); Leukocyte Esterase, Urine Neg (Neg); Nitrite, Urine Neg (Neg); Protein, Urine 2+ (Neg); Urobilinogen, Urine NORM (Normal)
[2024-06-28 03:59] LABS: Appearance, Urine Clear (Clear); Color, Urine Yellow (P-Yellow)
[2024-06-28 04:01] LABS: Amorphous Light (0-Heavy); Bacteria Few /hpf; Red Blood Cells, Urine 0-2 /hpf (0-2); Squamous Epithelial Cells Few /hpf (Few); White Blood Cells, Urine 0-2 /hpf (0-5)
[2024-06-28] MEDS ORDERED: Mag Hydrox/AL Hydrox/Simeth 30 ML UDC PO ONE (04:05)
[2024-06-28] MEDS ORDERED: Labetalol HCL 5 MG/ML 4ML Injection (Single Dose) IV ONE (04:05)
[2024-06-28] MEDS ORDERED: Labetalol HCL 100 MG TAB PO ONE (04:15)
[2024-06-28 04:36] LABS: BASOPHILS ABSOLUTE AUTO 0.04 K/mm3 (0.00-0.23); BASOPHILS PERCENT AUTO 1 % (0-2); EOSINOPHILS ABSOLUTE AUTO 0.12 K/mm3 (0.00-0.68); EOSINOPHILS PERCENT AUTO 2 % (0-6); Hematocrit 38.3 % (33.0-51.0); Hemoglobin 13.5 g/dL (11.5-16.0); IMMATURE GRAN ABSOLUTE AUTO 0.03 K/mm3 (0.00-0.10); IMMATURE GRAN PERCENT AUTO 0 % (0-1); LYMPHOCYTES ABSOLUTE AUTO 1.68 K/mm3 (0.84-5.20); LYMPHOCYTES PERCENT AUTO 22 % (21-46); MONOCYTES ABSOLUTE AUTO 0.83 K/mm3 (0.16-1.47); MONOCYTES PERCENT AUTO 11 % (4-13); Mean Corpuscular HGB 30.9 pg (26.0-34.0); Mean Corpuscular HGB Conc 35.2 g/dL (31.5-36.5); Mean Corpuscular Volume 88 fL (80-100); Mean Platelet Volume 9.4 fL (9.1-12.4); NEUTROPHILS ABSOLUTE AUTO 4.96 K/mm3 (1.96-9.15); NEUTROPHILS PERCENT AUTO 65 % (41-73); Platelet Count 289 K/mm3 (150-400); RDW Coefficient Variation 12.2 % (11.7-14.2); Red Blood Cell Count 4.37 M/mm3 (3.80-5.20); White Blood Cell Count 7.66 K/mm3 (4.00-11.30)
[2024-06-28] MEDS ORDERED: Phenazopyridine HCl 100 MG Tab PO ONE (04:50)
[2024-06-28 05:00] VITALS: BP 149/111
[2024-06-28 05:01] LABS: International Normalized Ratio 0.95; Prothrombin Time Results 10.2 Sec (9.7-11.5)
[2024-06-28 05:01] LABS: Protein, Urine Random 24.1 mg/dL (0.0-11.9)
[2024-06-28 05:02] LABS: Albumin, Blood 3.7 g/dL (3.4-5.0); Albumin/Globulin Ratio 1.2 (0.8-1.8); Bilirubin, Total 0.2 mg/dL (0.1-1.0); Bun/Creatinine Ratio 16.9 (12.0-20.0); Calcium, Blood 8.4 mg/dL (8.5-10.1); Creatinine, Blood 0.71 mg/dL (0.40-1.00); Globulin, Blood 3.1 g/dL (2.2-4.0); Potassium, Blood 3.7 mmol/L (3.5-5.5); Total Protein, Blood 6.8 g/dL (6.4-8.2); Uric Acid, Blood 4.1 mg/dL (2.6-6.0)
[2024-06-28] MEDS ORDERED: DOXY100 PO (10:25)
[2024-06-28] MEDS ORDERED: METR500 PO (10:25)
== END 2024-06-28 05:25 | disposition home or self-care (01) ==
LOC: ER 03:04
PROVIDERS: Emergency Medicine
DX: N34.2 Other urethritis (principal); K21.9 Gastro-esophageal reflux disease without esophagitis; I10 Essential (primary) hypertension; R07.89 Other chest pain; F41.9 Anxiety disorder, unspecified; T40.715A Adverse effect of cannabis, initial encounter; E03.9 Hypothyroidism, unspecified; F17.210 Nicotine dependence, cigarettes, uncomplicated; Z88.2 Allergy status to sulfonamides; Z88.1 Allergy status to other antibiotic agents; Z91.040 Latex allergy status; Z79.82 Long term (current) use of aspirin; Z79.899 Other long term (current) drug therapy; Z59.89 Other problems related to housing and economic circumstances
CPT/HCPCS: 80053; 81001; 82570; 84156; 84550; 85025; 85384; 85610; 85730; 93005; 93010; 99284-25; A9270

== ENCOUNTER 2024-06-28 08:08 | Emergency (ER) | payer BC, MEDICARE, OTHER ==
[~2024-06-28] VITALS: Ht 149.9 cm; Wt 113.4 kg
[2024-06-28] MEDS ORDERED: CefTRIAXone 1000 MG Vial IM ONE (10:15)
[2024-06-28] MEDS ORDERED: Doxycycline Hyclate 100 MG TAB PO ONE (10:15)
[2024-06-28] MEDS ORDERED: MetroNIDAZOLE 500 MG Tab PO ONE (10:20)
[2024-06-28] MEDS ORDERED: METR500 PO (10:25)
[2024-06-28] MEDS ORDERED: DOXY100 PO (10:25)
[2024-06-28 11:07] VITALS: BP 130/74
[2024-06-28 11:57] LABS: Bacterial Vaginosis PCR Negative (NEGATIVE); Candida Group, PCR NOT DETECTED (NOT DETECT); Candida glabrata-krusei, PCR NOT DETECTED (NOT DETECT)
[2024-06-28 12:01] LABS: Chlamydia Trachomatis Vaginal NOT DETECTED (NOT DETECT); Neisseria Gonorrhoea Vaginal NOT DETECTED (NOT DETECT)
== END 2024-06-28 11:08 | disposition home or self-care (01) ==
LOC: ER 08:08
PROVIDERS: Emergency Medicine
DX: N72 Inflammatory disease of cervix uteri (principal); R10.9 Unspecified abdominal pain; E03.9 Hypothyroidism, unspecified; F31.9 Bipolar disorder, unspecified; F17.210 Nicotine dependence, cigarettes, uncomplicated; Z88.2 Allergy status to sulfonamides; Z88.1 Allergy status to other antibiotic agents; Z91.040 Latex allergy status; Z79.899 Other long term (current) drug therapy; Z79.82 Long term (current) use of aspirin
CPT/HCPCS: 74177; 81515; 87491; 87591; 96372; 99284; A9270; J0696; Q9967

== ENCOUNTER → 2024-06-30 | Outpatient (CLI) | payer BC, MEDICARE, OTHER ==
[~2024-06-30] MED LIST changes: +DOXY100 PO; +METR500 PO
[2024-07-03 09:17] LABS: HEPATITIS C AB CIA INTERP Negative (Negative); HEPATITIS C ANTIBODY CIA INDEX 0.15 IV
[2024-07-03 09:25] LABS: HIV 1,2 COMBO ANTIGEN/ANTIBODY Negative (Negative)
== END ==
LOC: LAB 09:43 → LAB SHORT 09:43
PROVIDERS: Student in an Organized Health Care Education/Training Program
DX: F53.0 Postpartum depression (principal); F41.1 Generalized anxiety disorder; R10.2 Pelvic and perineal pain; Z11.3 Encounter for screening for infections with a predominantly sexual mode of transmission
CPT/HCPCS: 86592; 86803; 87389

== ENCOUNTER → 2024-07-22 | Outpatient (CLI) | payer BC, MEDICARE, OTHER ==
[2024-07-22 12:25] LABS: Bacterial Vaginosis PCR Negative (NEGATIVE); Candida Group, PCR NOT DETECTED (NOT DETECT); Candida glabrata-krusei, PCR NOT DETECTED (NOT DETECT)
== END ==
LOC: LAB 10:56 → LAB SHORT 10:56
PROVIDERS: Nurse Practitioner Family
DX: R30.0 Dysuria (principal); N89.8 Other specified noninflammatory disorders of vagina
CPT/HCPCS: 81515; 87086

== ENCOUNTER → 2024-11-08 | Outpatient (CLI) | payer BC, MEDICARE, OTHER | LOC: LAB 11:51 → LAB SHORT 11:51 | DX: R10.2 Pelvic and perineal pain (principal); N91.2 Amenorrhea, unspecified | CPT/HCPCS: 84702 ==

== ENCOUNTER → 2024-12-12 | Outpatient (CLI) | payer MEDICARE, OTHER ==
[2024-12-13 11:15] LABS: Bacterial Vaginosis PCR Positive (NEGATIVE); Candida Group, PCR NOT DETECTED (NOT DETECT); Candida glabrata-krusei, PCR NOT DETECTED (NOT DETECT)
== END | disposition home or self-care (01) ==
LOC: LAB 15:48 → LAB SHORT 15:48
PROVIDERS: Family Medicine
DX: N89.8 Other specified noninflammatory disorders of vagina (principal)
CPT/HCPCS: 81515